=== PATIENT | female | born 1955 | race Caucasian/White ===

== ENCOUNTER 2022-07-29 09:40 | Emergency (ER) | payer BC, SELFPAY ==
[2022-07-29 09:45] VITALS: BP 140/76; PULSE 103; RESP 24; TEMP 37.6; O2SAT 89
--- NOTE | 2022-07-29 09:50 | ED.URI ---
HPI - URI/Sore Throat General Chief Complaint: Upper Respiratory Infection Stated Complaint: Sinus/SOB Time Seen by Provider: 07/29/22 09:50 Source: patient and RN notes reviewed Mode of arrival: ambulatory Limitations: no limitations History of Present Illness HPI Narrative: 67-year-old female presents with concern for cough, shortness of breath. Patient reports she has had allergy symptoms for the last 2 weeks that started to improve. Reports last night she started having worsening symptoms, cough and has shortness of breath. She denies any history of asthma or other breathing problems. She reports her symptoms are worse with exertion. She denies any use of albuterol at home. She reports low-grade temperature. She denies body aches, chills, sweats. Denies abdominal pain, vomiting, diarrhea. She reports several years ago she had a similar episode of shortness of breath when she was sick. MD elicited complaint: cough Related Data Home Medications Medication Instructions Recorded Confirmed acetaminophen 500 mg tablet (Pain 1,000 mg PO DAILY PRN Pain 08/25/21 07/29/22 Reliever (acetaminophen)) calcium carbonate 300 mg (750 mg) 600 mg PO DAILY PRN Allergic 08/25/21 07/29/22 chewable tablet (Tums) Symptoms loratadine 5 mg-pseudoephedrine ER 1 tablet PO Q12H PRN Congestion 08/25/21 07/29/22 120 mg tablet,extended release,12hr (Claritin-D 12 Hour) Allergies Allergy/AdvReac Type Severity Reaction Status Date / Time codeine Allergy Unknown Nausea and Verified 08/25/21 12:48 Vomiting Review of Systems Review of Systems: CONSTITUTIONAL: Denies malaise, chills, sweats. Reports low-grade fever. EYES: Denies visual changes, redness, or discharge. ENT: Reports rhinorrhea, congestion. Denies sinus pain, otalgia and sore throat. CARDIOVASCULAR: Denies chest pain, palpitations, or edema. RESPIRATORY: Reports cough, wheezing, dyspnea. GASTROINTESTINAL: Denies abdominal pain, nausea, vomiting, diarrhea SKIN: Denies rash or itching. MUSCULOSKELETAL: Denies myalgia. NEUROLOGIC: Denies headache. All systems reviewed & are unremarkable except as noted in HPI and below PMFSH Surgical History Surgical History (Updated 08/25/21 @ 12:54 by Leigh Davies MA) Hx of section x 2 Hx of hysterectomy Family History Family History (Updated 08/25/21 @ 12:55 by Leigh Davies MA) Mother Uterine cancer Father Throat cancer Social History Social History (Updated 08/25/21 @ 12:56 by Leigh Davies MA) Smoking packs per day: 0.5 Smoking cigarettes per day: 10.0 Years smoked: 20 Smoking pack-years: 10.00 Smoking status: Current every day smoker Tobacco type: cigarettes Second hand tobacco smoke exposure: No Alcohol intake: current Drinks per week: 7 Alcohol use details: Wine Substance use: never Substance use type: does not use Living arrangements: with family Occupation/Education: retired Gender identity (if verbalized by the patient): Female Sexual Orientation (if Verbalized by the Patient): Straight or Heterosexual Spiritual care concerns: No Agree to blood products: Yes Comments At time of signature, agree with nursing past medical, surgical, social and family history. There is no relevant family history pertinent to the presenting complaint Exam Narrative: GENERAL: Well-appearing, well-nourished, and in no acute distress. HEAD: Normocephalic EYES: PERRLA, conjunctivae clear ENT: Nares clear, turbinates edematous and erythematous, clear discharge. Mucous membranes moist. TM pearly alvarez with dull light reflex bilaterally; no tragal tenderness. Oropharynx not erythematous without lesions. Tonsils not enlarged and without exudate, no drooling, no hoarseness, no trismus, uvula midline. NECK: Supple. No lymphadenopathy CHEST: Aeration poor, inspiratory and expiratory wheeze, conversational dyspnea. No rhonchi, rales, or stridor. HEART: Regular rate
[2022-07-29] MEDS: IPRATROPIUM BR 0.02% INH SOLN 0.5 MG/2.5 ML VIAL INHALATION ×2 (09:53→10:30)
[2022-07-29] MEDS: ALBUTEROL SULFATE NEB 2.5 MG/3 ML INH INHALATION ×2 (09:53→10:31)
[2022-07-29 09:55] VITALS: PULSE 102; RESP 26; O2SAT 91
[2022-07-29] MEDS: methylPREDNISolone SOD SUCC 125 MG VIAL IM (09:59)
[2022-07-29 10:12] VITALS: PULSE 106; RESP 24; O2SAT 94
[2022-07-29 10:32] VITALS: PULSE 95; RESP 24; O2SAT 93
[2022-07-29 10:57] VITALS: PULSE 103; RESP 24; O2SAT 94
== END 2022-07-29 11:21 | disposition home or self-care (01) ==
PROVIDERS: Emergency Provider Nurse Practitioner; PCP Family Medicine Adolescent Medicine
DX: R06.2 Wheezing (principal); R06.02 Shortness of breath; Z20.822 Contact with and (suspected) exposure to COVID-19
CPT/HCPCS: 87426; 87804; 94640; 96372; 99213; C9803; G0463; J2930

== ENCOUNTER 2023-07-01 13:05 | Outpatient (CLI) | payer BC, SELFPAY ==
--- NOTE | ~2023-07-01 | XR_ITS ---
EXAM: XR hip RT min 2V DATE: 07/01/2023 13:14 HISTORY: Pain right hip, acute. Concern for AVN no injury . COMPARISON: None available. FINDINGS: Decreased mineralization. No fracture or dislocation. No lytic or blastic lesion. Lumbar d egenerative disc disease. Mild degenerative change in the pubic symphysis and right hip. No erosion o r periosteal change. Soft tissues within normal limits. IMPRESSION: Osteopenia. Mild right hip osteoarthritis. Mild osteitis pubis. Reviewed, dictated and finalized at location [facility].
== END 2023-07-01 13:06 ==
PROVIDERS: PCP Family Medicine Adolescent Medicine; Visit Provider Family Medicine Adolescent Medicine
DX: M85.851 Other specified disorders of bone density and structure, right thigh (principal); M16.11 Unilateral primary osteoarthritis, right hip
CPT/HCPCS: 73502

== ENCOUNTER → 2024-02-02 10:05 | Outpatient (CLI) | payer BC, SELFPAY ==
--- NOTE | ~2024-02-02 | XR_ITS ---
Clinical Indication: Shortness of breath PA and lateral views of the chest: Comparison: 10/21/2016 Findings: The lungs are clear, without evidence of focal consolidation or pleural effusion. Cardiome diastinal silhouette is within normal limits. Bones and soft tissues are unremarkable. Impression: Normal chest. Reviewed, dictated and finalized at [facility]. ICAL APPLICATOR Impression: Normal chest.
== END ==
PROVIDERS: PCP Family Medicine; Visit Provider Family Medicine
DX: R06.02 Shortness of breath (principal)
CPT/HCPCS: 71046

== ENCOUNTER 2024-02-10 14:20 | Outpatient (CLI) | payer BC, SELFPAY ==
--- NOTE | 2024-02-13 10:10 | WPDPFTINT ---
PFT Procedure Performed PFT Procedure Performed Spirometry with Pre/Post Bronchodilator Plethysmography (Lung Vol) Diffusing Cap (DLCO) Flow Vol Loop PFT Interpretation This is a pulmonary function test with pre and post-bronchodilator spirometry, plethysmography and diffusing capacity. The test was performed and results interpreted in accordance with the 2019 and 2005 ATS/ERS Task Force guidelines respectively using the Global Lung Function Initiative-2012 reference equations. Patient demonstrated good effort and cooperation. Reproducibility criteria were met. The quality of the pre bronchodilator spirometry maneuver was Grade A and post bronchodilator spirometry maneuver was Grade A. Findings: Spirometry: There is decreased maximal expiratory airflow at low lung volumes with concave expiratory flow tracing. The contour the inspiratory flow tracing is normal. The pre bronchodilator FVC is 2.18 L, 83% predicted. The pre bronchodilator FEV1 is 1.42 L, 69% predicted. The FEV1: FVC ratio 65%. The post bronchodilator FVC is 2.28 L, representing a 4% increase. The post bronchodilator FEV1 is 1.60 L, representing 180 mL increase which corresponds to a 13% increase. The post bronchodilator FEV1: FVC ratio is 70%. Plethysmography: The total lung capacity is 4.19 L, 89% predicted. The functional residual capacity is 2.00, 75% predicted. The residual volume is 1.87 L, 90% predicted. Diffusing capacity: The diffusing capacity unadjusted for hemoglobin and carboxyhemoglobin is 14.8, 75% predicted. The diffusing capacity adjusted for alveolar volume is 3.81, 87% predicted. Impression: There is a moderate obstructive abnormality. There is no significant improvement after inhaling a single dose of albuterol As the absolute increase in FEV1 is less than 200 mL. the lung volumes are normal. The diffusing capacity is normal. There are no prior studies for comparison
== END 2024-02-10 14:21 | disposition home or self-care (01) ==
LOC: ANHPFT 14:21
PROVIDERS: PCP Family Medicine; Visit Provider Family Medicine
DX: R94.2 Abnormal results of pulmonary function studies (principal); R06.00 Dyspnea, unspecified; R06.02 Shortness of breath; R06.2 Wheezing
CPT/HCPCS: 94060; 94726; 94729

== ENCOUNTER 2024-12-28 13:53 | Outpatient (CLI) | payer MEDICARE, SELFPAY ==
--- NOTE | ~2024-12-28 | MM_ITS ---
EXAMINATION: MM screening valentín BI w suresh HISTORY: Screening TECHNIQUE: Craniocaudal and mediolateral oblique 3-D tomosynthesis images were obtained and synthetic 2-D images were generated. CAD analysis was submitted and interpreted. COMPARISON: No prior mammogram is available for comparison at this institution. BREAST PARENCHYMAL COMPOSITION: Dense: The breasts are heterogeneously dense, which may obscure small masses FINDINGS: There are bilateral breast asymmetries centered in the upper outer quadrant of both breasts with possible architectural distortion. IMPRESSION: 1. Bilateral breast asymmetries with possible architectural distortion centered in the upper outer quadrant of both breasts. 2. Additional spot compression and mediolateral views with possible follow-up breast ultrasound recommended. BI-RADS Category 0: Incomplete: Needs additional imaging evaluation. Reviewed, dictated and finalized at location B. IMPRESSION: 1. Bilateral breast asymmetries with possible architectural distortion centered in the upper outer quadrant of both breasts. 2. Additional spot compression and mediolateral views with possible follow-up b reast ultrasound recommended. BI-RADS Category 0: Incomplete: Needs additional imaging evaluation.
--- OUTSIDE RECORDS SUMMARY | 2024-12-28 13:55 | XMS_ITS | Clinical Summary ---
Author Organization [employer] [facility] Address [address] 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
== END 2024-12-28 13:54 | disposition home or self-care (01) ==
PROVIDERS: PCP Family Medicine Adolescent Medicine; Visit Provider Family Medicine Adolescent Medicine
DX: Z12.31 Encounter for screening mammogram for malignant neoplasm of breast (principal); R92.8 Other abnormal and inconclusive findings on diagnostic imaging of breast
CPT/HCPCS: 77063; 77067

== ENCOUNTER 2025-01-09 08:19 | Outpatient (CLI) | payer MEDICARE, SELFPAY ==
--- OUTSIDE RECORDS SUMMARY | 2025-01-09 08:37 | XMS_ITS | Clinical Summary ---
Author Organization [id number] [facility] Address [address] 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
[2025-01-09 08:51] LABS: Hematocrit 39.3 % (37.0-47.0); Hemoglobin 13.1 g/dL (12.0-15.0); Immature Granulocyte Percent A 0.8 % (0-0.5); Immature Platelet Fraction Pct 2.4 % (0.9-11.2); Lymphocytes Absolute Auto 1.50 K/mm3 (0.9-3.2); Mean Corpuscular HGB Conc 33.3 g/dl (32-36); Mean Corpuscular Hemoglobin 30.8 pg (26-34); Mean Corpuscular Volume 92.3 fl (80-100); Nucleated Red Blood Cells Absolute Auto 0.000 K/mm3 (0.0-0.012); Nucleated Red Blood Cells Perc 0.0 % (0.0-0.2); Platelet Count Result 151 k/mm3 (150-375); Red Blood Count 4.26 M/mm3 (4.2-5.4); White Blood Count 6.3 K/mm3 (4.5-10.0)
[2025-01-09 09:17] LABS: Estimated Glomerular Filt Rate 26
[2025-01-09 09:57] LABS: Alanine Aminotransferase 34 U/L (6-35); Albumin Level 4.1 g/dL (3.5-5.1); Alkaline Phosphatase 133 U/L (38-126); Anion Gap 17 mmol/L (4-12); Aspartate Amino Transferase 59 U/L (14-36); Bilirubin,Total 1.1 mg/dL (0.2-1.3); Blood Urea Nitrogen 23 mg/dL (7-17); Calcium 10.5 mg/dL (8.4-10.2); Carbon Dioxide 24 mmol/L (22-30); Chloride 98 mmol/L (98-107); Estimated Glomerular Filt Rate 30; Glucose 117 mg/dL (65-110); Potassium 3.2 mmol/L (3.4-5.0); Sodium 139 mmol/L (137-145); Total Protein 8.0 g/dL (6.3-8.2)
[2025-01-09 10:32] LABS: Thyroid Stimulating Hormone 7.150 uIU/mL (0.465-4.680)
== END 2025-01-09 08:20 | disposition home or self-care (01) ==
PROVIDERS: PCP Family Medicine; Visit Provider Family Medicine
DX: E03.9 Hypothyroidism, unspecified (principal); R11.2 Nausea with vomiting, unspecified; R68.89 Other general symptoms and signs; R19.7 Diarrhea, unspecified; R13.10 Dysphagia, unspecified; F17.201 Nicotine dependence, unspecified, in remission
CPT/HCPCS: 36415; 80053; 84443; 85025; 85055

== ENCOUNTER 2025-01-09 09:30 | Inpatient (IN) | payer MEDICARE, SELFPAY ==
[2025-01-09] VITALS (10 sets, daily range): BP systolic 100–136; BP diastolic 51–76; PULSE 72–84; RESP 12–20; TEMP 36.8–36.9; O2SAT 95–99; BMI 42.7
--- NOTE | ~2025-01-09 | XR_ITS ---
EXAMINATION: XR retrograde pyelo w/stent BI DATE: 01/10/2025 15:26 INDICATION: Bilateral ureteroscopy TECHNIQUE: 247 fluoroscopic images of the abdomen and pelvis were obtained during procedure performed by Dr. Regalado. Radiologist was not present for the imaging or procedure. The amount of fluoroscopy time used during this procedure was 4.0 minutes. Total DAP was 8.14 mGym^2. COMPARISON: CT dated 01/09/2025 FINDINGS: Laboratory Equipment Installer images demonstrate a large rim calcified gallstone in the right upper quadrant. Subsequent images demonstrate cannulation of the right ureter with retrograde contrast injection demonstrating severe right hydroureteronephrosis extending to approximately 5 cm long stricture in the mid right ureter with smooth mucosal margins. Subsequent cannulation and retrograde contrast injection into the left ureter demonstrates moderate left hydronephrosis with an approximately 7 cm stricture of the mid left ureter also with smooth mucosal margins. No evident intraluminal filling defects or urothelial irregularities. Final images demonstrate placement of bilateral intraureteral stents with loops formed in the bladder and bilateral renal pelvises. IMPRESSION: 1. Severe right-sided and moderate left-sided hydronephrosis likely secondary to long strictures with smooth mucosal margins at the bilateral mid ureters. No evident urothelial irregularities to elevate suspicion for malignancy. 2. Placement of bilateral internal ureteral stents in expected position. See procedure note for further detail. Reviewed, dictated and finalized at location A. IMPRESSION: 1. Severe right-sided and moderate left-sided hydronephrosis likely secondary t o long strictures with smooth mucosal margins at the bilateral mid ureters. No evident urothelial irregularities to elevate suspicion for malignancy. 2. Placement of bilateral internal ureteral stents in expected position. See pr ocedure note for further detail.
--- NOTE | ~2025-01-09 | XR_ITS ---
EXAMINATION: XR chest 2V, 01/09/2025 12:30 CDT HISTORY: weakness COMPARISON: No comparisons available. Technique: 2 views obtained. Findings: The lungs are clear, no effusion. No pneumothorax. Heart is normal size. Mediastinal and hilar contours are within normal limits. Bony thorax no acute abnormality. Impression: No acute cardiopulmonary abnormality. Reviewed, dictated and finalized at location P. Impression: No acute cardiopulmonary abnormality.
--- NOTE | ~2025-01-09 | CT_ITS ---
EXAMINATION: CT chest abdomen pelvis wo con DATE: 01/09/2025 12:44 INDICATION: Unintentional weight loss. TECHNIQUE: Computed tomography (CT) of the chest, abdomen, and pelvis was performed without intravenous contrast. Automated exposure control and iterative reconstruction technique were employed. The dose-length product was 1409.98 mGy-cm. COMPARISON: None FINDINGS: CHEST CT: Mild linear discoid atelectasis/scarring at the posterior inferior aspect of the lingula and right middle lobe and at the junction of the superior and anteromedial basilar segments of the right lower lobe. A couple likely benign intrafissural lymph nodes along the left major fissure more cephalad measuring 3 mm in the more caudal measuring 5 mm. No other suspicious pulmonary nodules, pneumonia, pulmonary edema or other pulmonary infiltrates. No pleural effusion. Heart size is normal. Atherosclerotic coronary artery calcifications. Small pericardial effusion. Thoracic aorta is normal in caliber. Mild mediastinal lymphadenopathy with a few mildly enlarged precarinal and right paratracheal lymph nodes measuring up to 12 mm in maximal short axis diameter. Moderate to severe thoracic spondylosis. There are multiple scattered sclerotic bone lesions in the thoracic spine raising suspicion for metastatic disease. Likely old healed fracture deformity lateral right ninth rib. Asymmetric increased soft tis singh densities at the left breast relative to the right. ABDOMEN/PELVIS CT: Large rim calcified gallstone at the neck of the otherwise normal-appearing nondistended gallbladder. Diffuse hepatic steatosis. Spleen, pancreas and bilateral adrenal glands are normal. Mild likely age-related bilateral renal cortical atrophy. There is severe right hydroureteronephrosis extending to an abrupt transition point at the mid right ureter at the level of L5-S1. Mild left hydronephrosis with gradual tapering of the normal caliber proximal left ureter. No evident obstructing stones identified. Moderate diverticulosis with descending and sigmoid colon predominance and without adjacent inflammatory stranding to suggest diverticular colitis. Small bowel and appendix are normal. There is some wall thickening along the dome of the bladder which could be due to incomplete distention or differential includes malignancy or cystitis either acute or chronic. The uterus is not identified and has likely been surgically resected. Bilateral adnexa are unremarkable. There is diffuse mild mesenteric e malorie and small amount of ascites deep pelvis. There are multiple mildly prominent but still normal-sized upper abdominal lymph nodes which are likely reactive. No pathologically enlarged abdominal or pelvic lymphadenopathy. There are multiple scattered sclerotic lesions in the lumbar spine and pelvis. IMPRESSION: 1. Severe right hydroureteronephrosis extending to a transition point in the mid right ureter without evident obstructing stone which raises some concern for urothelial carcinoma. Wall thickening along the dome of the fluid distended bladder more likely due to partially decompressed state although differential would also include urothelial carcinoma or sequela of acute or chronic cystitis. Correlate with urinalysis and consider CT urogram for further evaluation. 2. Mild right hydronephrosis with gradual tapering of the proximal left ureter without discrete obstructing stone or mass. 3. Multiple scattered small sclerotic bone lesions throughout the spine and pelvis which raises suspicion for metastatic disease. Consider bone scan for further evaluation 4. Asymmetric left-sided predominant soft tissue densities at the breast. Correlate with mammography. 5. Nonspecific mild mesenteric edema in the abdomen and pelvis and small amount of scattered ascites. 6. Prominent diverticulosis. 7. Small sliding-type hiatal hernia. 8. Mild mediastinal and upper abdominal lymphadenopathy. 9. Small pericardial effusion. Reviewed, dictated and finalized at location A. IMPRESSION: 1. Severe right hydroureteronephrosis extending to a transition point in the mi d right ureter without evident obstructing stone which raises some concern for urothelial carcinoma. Wall thickening along the dome of the fluid distended steve dder more likely due to partially decompressed state although differential woul d also include urothelial carcinoma or sequela of acute or chronic cystitis. Co rrelate with urinalysis and consider CT urogram for further evaluation. 2. Mild right hydronephrosis with gradual tapering of the proximal left ureter without discrete obstructing stone or mass. 3. Multiple scattered small sclerotic bone lesions throughout the spine and pel vis which raises suspicion for metastatic disease. Consider bone scan for furth er evaluation 4. Asymmetric left-sided predominant soft tissue densities at the breast. Corre late with mammography. 5. Nonspecific mild mesenteric edema in the abdomen and pelvis and small amount of scattered ascites. 6. Prominent diverticulosis. 7. Small sliding-type hiatal hernia. 8. Mild mediastinal and upper abdominal lymphadenopathy. 9. Small pericardial effusion.
--- OUTSIDE RECORDS SUMMARY | 2025-01-09 10:40 | XMS_ITS | Clinical Summary ---
Author Organization [facility] Address [address] 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
--- NOTE | 2025-01-09 12:05 | ECG_ITS ---
Test Date: 2025-01-09 12:24:48 Measurements Intervals [place] Rate: 73 P: 34 OR: 174 QRS: 13 QRSD: 88 T: 2 QT: 397 QTc: 439 Interpretive Statements SINUS RHYTHM BASELINE ARTIFACT- I, II, III, AVR, AVL, AVF, V1, V4-V6 NORMAL ECG No previous ECG available for comparison Electronically Signed On 01-09-2025 14:16:47 CDT by Esteban Whitman D.O.
[2025-01-09 12:15] LABS: Hematocrit 37.7 % (37.0-47.0); Hemoglobin 12.7 g/dL (12.0-15.0); Immature Granulocyte Percent A 0.5 % (0-0.5); Lymphocytes Absolute Auto 1.45 K/mm3 (0.9-3.2); Mean Corpuscular HGB Conc 33.7 g/dl (32-36); Mean Corpuscular Hemoglobin 30.6 pg (26-34); Mean Corpuscular Volume 90.8 fl (80-100); Nucleated Red Blood Cells Absolute Auto 0.000 K/mm3 (0.0-0.012); Nucleated Red Blood Cells Perc 0.0 % (0.0-0.2); Platelet Count Result 127 k/mm3 (150-375); Red Blood Count 4.15 M/mm3 (4.2-5.4); White Blood Count 6.0 K/mm3 (4.5-10.0)
[2025-01-09] MEDS: LACTATED RINGERS 1,000 ML 999 ML IV CONT ×2 (12:17)
--- NOTE | 2025-01-09 12:23 | ED.RECABL ---
HPI - Recheck/Abnormal Lab/Rx General Chief Complaint: Recheck/Abnormal Lab/Rx Stated Complaint: SENT OVER FOR IVF FOR ELEVATED KIDNEY FUNCTION Time Seen by Provider: 01/09/25 12:01 History of Present Illness HPI narrative: 69-year-old female presenting from outpatient radiology suite for concern of kidney dysfunction. Patient was referred for CT scan of the chest abdomen pelvis with IV contrast for evaluation of suspected malignancy given patient's clinical history including unintentional large weight loss over the last few months with inability to tolerate oral intake, profound nausea vomiting and some watery diarrhea but no abdominal pain or chest pain/shortness of breath. She went to her primary care provider office today had a workup done with CT scan ordered. Went to her radiology suite where they point care tested her and she had a low GFR worse than her baseline so she was referred to the ED for evaluation. Patient denies any new complaints. States her symptoms have been going on for last few months. This is her 1st workup step after being evaluated by her PCP. Denies any abdominal pain, fever, chills. States she has early satiety and barely has any appetite anymore. States she has had unintentional 40 lb weight loss since October. Denies any fever chills or night sweats. No history of malignancy to her knowledge. States she has been having watery diarrhea but minimal output since she is not eating. Related Data Home Medications ?Medication ?Instructions ?Recorded ?Confirmed ?Last Taken ?Type diclofenac sodium 75 mg 75 mg PO DAILY 01/09/25 01/09/25 01/06/25 History tablet,delayed release Allergies Allergy/AdvReac Type Severity Reaction Status Date / Time codeine AdvReac Unknown Nausea and Verified 01/09/25 16:33 Vomiting Review of Systems Review of Systems: As reviewed above in HPI [facility] Past Medical History Medical History Body mass index (BMI) of 40.1 to 44.9 in adult COPD (chronic obstructive pulmonary disease) Hypothyroidism, unspecified Bilateral primary osteoarthritis of knee Surgical History Surgical History Hx of section x 2 Hx of hysterectomy Family History Family History Mother Uterine cancer Father Throat cancer Sibling No problems noted. Social History Social History Smoking packs per day: 1 Smoking cigarettes per day: 20.0 Years smoked: 20 Smoking pack-years: 20.00 Smoking status: Former smoker Second hand tobacco smoke exposure: No Alcohol intake: current Drinks per week: 7 Alcohol use details: Wine Substance use: never Substance use type: does not use Other substance usage details: Before october Do You Feel Safe in your Home?: Yes Lack of Transportation: No Lack of Food: Never True Current Housing: I Have Housing Concerned About Future Housing: No Difficulty Paying Gas/Electric Bills: No Difficulty Paying for Meds: No Currently Unemployed: No Education: High School Diploma/GED Difficulty w/ Childcare or Family Care: No Living arrangements: with family Occupation/Education: retired 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 Mucous membranes dry. NECK: Supple. CHEST: [Clear to auscultation. No respiratory distress.] HEART: [Regular rate and rhythm]. No murmur heard. [Normal peripheral pulses.] ABDOMEN: [Soft, nondistended], [nontender], [No rigidity or guarding] EXTREMITIES: Normal range of motion. [No edema.] SKIN: Warm, dry, no rash. NEURO: [No focal deficits]. Alert and oriented [x3.] PSYCH: [Normal mood and affect.] Course Vital Signs Vital signs: Vital Signs Temperature 36.8 C 01/09/25 09:40 Pulse Rate 84 01/09/25 09:40 Respiratory Rate 16 01/09/25 09:40 Blood Pressure 119/65 01/09/25 09:40 Pulse Oximetry 99 01/09/25 09:40 Temperature 36.8 C 01/09/25 09:40 Pulse Rate 79 01/09/25 15:12 Respiratory Rate 15 01/09/25 15:12 Blood Pressure 114/64 01/09/25 15:12 Pulse Oximetry 98 01/09/25 15:12 Oxygen Delivery Room Air 01/09/25 18:01 MDM - Recheck/Abnormal Lab/Rx MDM Narrative Medical decision making narrative: 69-year-old female presenting from outpatient radiology suite for concern of kidney dysfunction. Patient was referred for CT scan of the chest abdomen pelvis with IV contrast for evaluation of suspected malignancy given patient's clinical history including unintentional large weight loss over the last few months with inability to tolerate oral intake, profound nausea vomiting and some watery diarrhea but no abdominal pain or chest pain/shortness of breath. She went to her primary care provider office today had a workup done with CT scan ordered. Went to her radiology suite where they point care tested her and she had a low GFR worse than her baseline so she was referred to the ED for evaluation. Patient denies any new complaints. States her symptoms have been going on for last few months. This is her 1st workup step after being evaluated by her PCP. Denies any abdominal pain, fever, chills. States she has early satiety and barely has any appetite anymore. States she has had unintentional 40 lb weight loss since October. Denies any fever chills or night sweats. No history of malignancy to her knowledge. States she has been having watery diarrhea but minimal output since she is not eating. Patient is hemodynamically stable without any tachycardia, fever, hypoxemia or blood pressure concerns. Slightly dry mucous membranes concern for dehydration especially with the clinical history of lacking p.o. intake and weight loss. Given patient's PCPs concern for malignancy in the setting of renal failure she will receive fluid hydration and CT scan without contrast given her low GFR. She CT chest abdomen pelvis was ordered without contrast, EKG chest x-ray basic laboratory studies obtained as well as urinalysis. Placed on fur plucker. Workup shows no leukocytosis or anemia. Platelets on the low side. Chemistry panel shows hypokalemia at 2.8, given IV and oral potassium. Creatinine rebound at 1.66 with fluids. Glucose 99. LFTs largely unremarkable. Urinalysis shows no signs of infection. CT scan shows multiple anomalies and acute findings including severe right-sided hydroureteronephrosis likely secondary to your 3-0 carcinoma or obstructing mass. Bladder dome wall lesion also identified, mild left hydro noted. Mesenteric edema noted and small pericardial effusion noted. I discussed the case with the on-call Urology team who recommended making the patient NPO for bilateral stent placement and biopsy tomorrow morning in the operating room. Discussed the case with the patient and the family members at bedside informing them of patient's potential malignancy diagnosis and workup here with an inpatient status. Spoke to the hospitalist team who accepted the patient to a telemetry monitored bed given the acute hypokalemia and acute malignancy findings with plan in place with Urology. Consult placed to Hematology-Oncology as well. Family's questions were answered and discussions had with multiple consultants prior to admission. Medical Records Attestation: I reviewed the patient's medical records. Lab Data Attestation: I reviewed the patient's lab results. 01/09/25 11:55 01/09/25 11:55 Labs: Lab Results 01/09/25 01/09/25 Range/Units 11:55 14:32 WBC 6.0 (4.5-10.0) K/mm3 RBC 4.15 L (4.2-5.4) M/mm3 Hgb 12.7 (12.0-15.0) g/dL Hct 37.7 (37.0-47.0) % MCV 90.8 (80-100) fl MCH 30.6 (26-34) pg MCHC 33.7 (32-36) g/dl RDW 13.4 (11.5-14.5) % Plt Count 127 L (150-375) k/mm3 MPV 9.6 (7.4-10.4) fl Immature Gran % (Auto) 0.5 (0-0.5) % Neut % (Auto) 65.2 (45.5-73.1) % Lymph % (Auto) 24.4 (18.3-44.2) % Tyrrell % (Auto) 7.4 (2.6-8.5) % Eos % (Auto) 1.8 (0-4.4) % Baso % (Auto) 0.7 (0.2-1.2) % Lymph # (Auto) 1.45 (0.9-3.2) K/mm3 Tyrrell # (Auto) 0.4 (0.1-0.6) K/mm3 Eos # (Auto) 0.1 (0-0.3) K/mm3 Baso # (Auto) 0.0 (0.0-0.1) K/mm3 Abs Immat Gran (auto) 0.03 (0.00-0.031) K/mm3 Absolute Neuts (auto) 3.9 (1.3-6.7) K/mm3 Absolute Nucleated RBC 0.000 (0.0-0.012) K/mm3 Nucleated RBC % 0.0 (0.0-0.2) % Sodium 137 (137-145) mmol/L Potassium 2.8 L* (3.4-5.0) mmol/L Chloride 98 (98-107) mmol/L Carbon Dioxide 22 (22-30) mmol/L Anion Gap 17 H (4-12) mmol/L BUN 21 H (7-17) mg/dL Creatinine 1.66 H (0.7-1.0) mg/dL Estim Creat Clear Calc 30 ml/min Estimated GFR 31 L (59 - ) Glucose 99 (65-110) mg/dL Calcium 10.1 (8.4-10.2) mg/dL Magnesium 1.6 (1.6-2.3) mg/dL Total Bilirubin 1.0 (0.2-1.3) mg/dL AST 57 H (14-36) U/L ALT 32 (6-35) U/L Alkaline Phosphatase 136 H (38-126) U/L Total Protein 7.8 (6.3-8.2) g/dL Albumin 4.1 (3.5-5.1) g/dL Urine Color Dark yellow (Yellow) Urine Appearance Cloudy H (Clear) Urine pH 5.5 (5.0-9.0) Ur Specific [place] 1.019 (1.001-1.035) Urine Protein 1+ H (Negative) mg/dL Urine Glucose (UA) Negative (Negative) mg/dL Urine Ketones 1+ H (Negative) mg/dL Ur Blood (Man) Negative (Negative) Urine Nitrate Negative (Negative) Urine Bilirubin Negative (Negative) Urine Urobilinogen 1.0 (<2.0) mg/dL Leukocyte Esterase Rfl Negative (Negative) KRISTEN/UL Urine RBC 3-5 H (0-2) /hpf Urine WBC 0-5 (0-3) /hpf Ur Squamous Epith Cells Occasional (Few) /hpf Urine Bacteria None seen /hpf Urine Casts 11-20 Hyaline Casts Present (None) /lpf Imaging Data Attestation: I personally reviewed and interpreted this imaging study as follows: My impression: Impressions Chest/Abdomen/Pelvis CT 01/09/25 12:53 IMPRESSION: 1. Severe right hydroureteronephrosis extending to a transition point in the mid right ureter without evident obstructing stone which raises some concern for urothelial carcinoma. Wall thickening along the dome of the fluid distended bladder more likely due to partially decompressed state although differential would also include urothelial carcinoma or sequela of acute or chronic cystitis. Correlate with urinalysis and consider CT urogram for further evaluation. 2. Mild right hydronephrosis with gradual tapering of the proximal left ureter without discrete obstructing stone or mass. 3. Multiple scattered small sclerotic bone lesions throughout the spine and pelvis which raises suspicion for metastatic disease. Consider bone scan for further evaluation 4. Asymmetric left-sided predominant soft tissue densities at the breast. Correlate with mammography. 5. Nonspecific mild mesenteric edema in the abdomen and pelvis and small amount of scattered ascites. 6. Prominent diverticulosis. 7. Small sliding-type hiatal hernia. 8. Mild mediastinal and upper abdominal lymphadenopathy. 9. Small pericardial effusion. Chest X-Ray 01/09/25 12:59 Impression: No acute cardiopulmonary abnormality. Critical Care Time Critical Care Time Critical Care Time: Yes Total Critical Care Time: 75 Discharge Plan Discharge Clinical Impression: Hydroureteronephrosis, Obstruction, uropathy, Acute kidney injury, Acute hypokalemia Patient Disposition: Still a Patient Condition: Stable
[2025-01-09 12:25] LABS: Alanine Aminotransferase 32 U/L (6-35); Albumin Level 4.1 g/dL (3.5-5.1); Alkaline Phosphatase 136 U/L (38-126); Anion Gap 17 mmol/L (4-12); Aspartate Amino Transferase 57 U/L (14-36); Bilirubin,Total 1.0 mg/dL (0.2-1.3); Blood Urea Nitrogen 21 mg/dL (7-17); Calcium 10.1 mg/dL (8.4-10.2); Carbon Dioxide 22 mmol/L (22-30); Chloride 98 mmol/L (98-107); Estimated CRCL calculation 30 ml/min; Estimated Glomerular Filt Rate 31; Glucose 99 mg/dL (65-110); Potassium 2.8 mmol/L (3.4-5.0); Sodium 137 mmol/L (137-145); Total Protein 7.8 g/dL (6.3-8.2)
[2025-01-09 12:41] LABS: Magnesium 1.6 mg/dL (1.6-2.3)
[2025-01-09] MEDS: KCL 20 MEQ/SW 100 ML 100 ML 50 MEQ IVPB (12:52)
[2025-01-09] MEDS: POTASSIUM CHLORIDE 20 MEQ PACKET (FOR LIQUID) 40 MEQ PO (12:52)
--- NOTE | 2025-01-09 13:48 | PC.NURSE ---
Pt unable to void using bedside commode clean catch ua, discussed importance of test. Pt continues to decline straight cath, fluids infusing, given call light.
--- OUTSIDE RECORDS SUMMARY | 2025-01-09 13:55 | XMS_ITS | Clinical Summary ---
Author Organization [employer] [facility] Address [address] 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
[2025-01-09] MEDS: ONDANSETRON INJ 4 MG/2 ML VIAL IV PUSH ×2 (14:05→21:27)
--- NOTE | 2025-01-09 14:33 | PC.NURSE ---
Pt was in room and assisted self out of bed in order to reach the sink due to nausea. Pt had call light in reach, spouse at bedside, A&Ox4 and was neg for fall risk when screened. Pt states she was trying to reach the sink when she fell on her butt. Denies hitting head, denies LOC, denies any injuries. Pt was able to get herself off the floor and was assisted back to stretcher. Fall risk placed on bracelet and incident report completed. Dr Driscoll ordered 4mg Zofran IVP and this was administered. Per EDP at bedside following exam, no imaging required.
[2025-01-09 14:59] LABS: Add Urine Microscopic? YES; Appearance Urine Cloudy (Clear); Glucose Urine UA Negative (Negative); Leukocyte Esterase Ur Negative LEU/UL (Negative); Nitrate Urine Negative (Negative); Specific Grav Ur 1.019 (1.001-1.035)
[2025-01-09] MEDS: METOCLOPRAMIDE HCL INJ 10 MG/2 ML VIAL 5 MG IV PUSH (15:10)
--- NOTE | 2025-01-09 16:01 | P.CONUR_ITS ---
Assessment and Plan Assessment and plan (1) Hydronephrosis, right: Code(s): N13.30 - Unspecified hydronephrosis Status: Acute (2) Hydronephrosis, left: Code(s): N13.30 - Unspecified hydronephrosis Status: Acute (3) Bladder wall thickening: Code(s): N32.89 - Other specified disorders of bladder Status: Acute Plan -CT AP CO CON reveals severe right hydroureteronephrosis extending to an abrupt transition point at the mid right ureter at the level of L5-S1. Mild left hydronephrosis with gradual tapering of the normal caliber proximal left ureter. No evident obstructing stones identified. There is some wall thickening along the dome of the bladder which could be due to incomplete distention or differential includes malignancy or cystitis either acute or chronic. There is diffuse mild mesenteric edema and small amount of ascites deep pelvis. There are multiple mildly prominent but still normal-sized upper abdominal lymph nodes which are likely reactive. No pathologically enlarged abdominal or pelvic lymphadenopathy. There are multiple scattered sclerotic lesions in the lumbar spine and pelvis. - WBC is 6.0 - creatinine is 1.66 which is down from 1.90 this morning -place atkinson and obtain ua, culture, and cytology -NPO after midnight. - discussed with patient and her CT image results and labs. we discussed the need for bilateral ureteral stents to allow the hydronephrosis to resolve while investigating the abnormal findings on imaging. We discussed risks of surgery including bleeding, infection, damage to surrounding structures, and . We discussed the stents are temporary and will come out after the need is no more. Patient and are agreeable to move forward with the surgery tomorrow. - Patient will have bilateral ureteral stents, bilateral retrograde pyelogram, and possible bladder biopsy with Dr. Regalado tomorrow. I have already contacted OR and she has been placed on the schedule. - Oncology has been consulted as well. Urology Consult Note HPI Date Seen: 01/09/25 Requesting Physician: Brandyn Todd MD Primary Care Provider: Ana Rosa Jones DO Consult Narrative Narrative: Marivel Johnson is a 69 year old female presenting from outpatient radiology suite for concern of kidney dysfunction. Patient was referred for CT scan of the chest abdomen pelvis with IV contrast for evaluation of suspected malignancy given patient's clinical history including unintentional large weight loss over the last few months with inability to tolerate oral intake, profound nausea vomiting and some watery diarrhea but no abdominal pain or chest pain/shortness of breath. She went to her primary care provider office today had a workup done with CT scan ordered. Went to her radiology suite where they point care tested her and she had a low GFR worse than her baseline so she was referred to the ED for evaluation. Patient denies any new complaints. States her symptoms have been going on for last few months. This is her 1st workup step after being evaluated by her PCP. Denies any abdominal pain, fever, chills. States she has early satiety and barely has any appetite anymore. States she has had unintentional 40 lb weight loss since October. Denies any fever chills or night sweats. No history of malignancy to her knowledge. States she has been having watery diarrhea but minimal output since she is not eating. c/o tailbone pain. Review of Systems 2 Review of Systems: All systems reviewed & are unremarkable except as noted in HPI and below PMFSH Past Medical History Medical History Body mass index (BMI) of 40.1 to 44.9 in adult COPD (chronic obstructive pulmonary disease) Hypothyroidism, unspecified Bilateral primary osteoarthritis of knee Surgical History Surgical History Hx of section x 2 Hx of hysterectomy Family History Family History Mother Uterine cancer Father Throat cancer Sibling No problems noted. Social History Social History Smoking packs per day: 0.5 Smoking cigarettes per day: 10.0 Years smoked: 20 Smoking pack-years: 10.00 Smoking status: Former smoker Tobacco type: cigarettes Second hand tobacco smoke exposure: No Smoking end date: 03/28/23 Alcohol intake: current Drinks per week: 7 Alcohol use details: Wine Substance use: never Substance use type: does not use Do You Feel Safe in your Home?: Yes Lack of Transportation: No Lack of Food: Never True Current Housing: I Have Housing Concerned About Future Housing: No Difficulty Paying Gas/Electric Bills: No Difficulty Paying for Meds: No Currently Unemployed: No Education: High School Diploma/GED Difficulty w/ Childcare or Family Care: No Living arrangements: with family Occupation/Education: retired 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 Gender identity (if verbalized by the patient): Female Sexual Orientation (if Verbalized by the Patient): Straight or Heterosexual Spiritual care concerns: No Agree to blood products: Yes Meds Home Medications and Allergies Home Medications ?Medication ?Instructions ?Recorded ?Confirmed ?Type calcium carbonate (Tums) 600 mg PO DAILY PRN Allergic 08/25/21 01/09/25 History Symptoms diclofenac sodium 75 mg 75 mg PO BID #180 tabs 11/1401/09/25 Rx tablet,delayed release albuterol sulfate 90 mcg/actuation 2 inh inhalation Q4 H PRN shortness 08/15/23 01/09/25 Rx aerosol inhaler of breath or wheezing #8.5 g christiano budesonide-formoterol HFA 160 2 puff inhalation BID #1 0.2 grams 02/14/24 01/09/25 Rx mcg-4.5 mcg/actuation aerosol inhaler (Symbicort) levothyroxine 100 mcg tablet 100 mcg PO DAILY #90 tabs 08/07/24 01/09/25 Rx pantoprazole 40 mg tablet,delayed 40 mg PO QAM 6 weeks #42 tabs 12/06/24 01/09/25 Rx release ondansetron 4 mg disintegrating 4 mg PO Q6H PRN nausea and 01/09/25 01/09/25 Rx tablet vomiting #30 tabs Allergies Allergy/AdvReac Type Severity Reaction Status Date / Time codeine AdvReac Unknown Nausea and Verified 01/09/25 12:31 Vomiting Vital Signs Vital Signs - 24 hr 01/09/25 09:40 01/09/25 11:14 01/09/25 11:23 Temperature 98.2 F Pulse Rate 84 77 Respiratory Rate 16 14 16 Blood Pressure 119/65 124/65 Pulse Oximetry 99 98 01/09/25 12:16 01/09/25 12:56 01/09/25 13:29 Temperature Pulse Rate 78 77 82 Respiratory Rate 20 19 19 Blood Pressure 136/76 131/60 126/70 Pulse Oximetry 96 98 98 01/09/25 14:11 01/09/25 15:12 Temperature Pulse Rate 72 79 Respiratory Rate 12 15 Blood Pressure 126/70 114/64 Pulse Oximetry 96 98 Exam 2 Const: General: no acute distress Eyes: General: appearance normal, both eyes and all related structures Resp: Effort & Inspection: normal respiratory effort Urinary Catheter: Urinary Catheter: patent and draining and urine clear (very small amount of urine in bag) Skin: General skin exam: normal color Neuro: Speech: normal speech Psych: Speech and movement: Normal speech and movement present Results Labs 01/09/25 11:55 01/09/25 11:55 Labs: Short CBC 01/09/25 Range/Units 11:55 WBC 6.0 (4.5-10.0) K/mm3 Hgb 12.7 (12.0-15.0) g/dL Hct 37.7 (37.0-47.0) % Plt Count 127 L (150-375) k/mm3 BMP 01/09/25 11:55 Sodium 137 Potassium 2.8 L* Chloride 98 Carbon Dioxide 22 BUN 21 H Creatinine 1.66 H Glucose 99 Calcium 10.1 Liver Function 01/09/25 Range/Units 11:55 Total Bilirubin 1.0 (0.2-1.3) mg/dL AST 57 H (14-36) U/L ALT 32 (6-35) U/L Alkaline Phosphatase 136 H (38-126) U/L Albumin 4.1 (3.5-5.1) g/dL Urine 01/09/25 Range/Units 14:32 Urine Color Dark yellow (Yellow) Urine Appearance Cloudy H (Clear) Urine pH 5.5 (5.0-9.0) Ur Specific [place] 1.019 (1.001-1.035) Urine Protein 1+ H (Negative) mg/dL Urine Glucose (UA) Negative (Negative) mg/dL
--- NOTE | 2025-01-09 16:18 | PM.IMHP ---
H&P: HPI History of Present Illness Date/Time: 01/09/25 16:18 Chief Complaint: Abnormal lab Narrative: 69-year-old female with a past medical history of COPD, hypothyroidism, arthritis presents to the ER 01/09/2025 from her PCP office with complaints of low GFR in the setting of a 3 month history of nausea, vomiting, diarrhea. She was supposed to get CT chest abdomen pelvis with contrast contrast today due to concerns for malignancy with her presenting symptoms. She was unable to complete the CT with contrast due to her gfr being 26. She has lost about 36 lbs in the last 3 months, 18 of those in the last month alone. Patient has not been able to consistently keep food and medication down and has been unable to take her thyroid medication for the past 5 days. Patient had abnormal mammogram on 12/28/2024 and has follow-up imaging scheduled for this on 01/18/2025. Denies dyspnea, chest pain, fevers, chills. Further complains of decreased appetite. Patient describes her diarrhea as watery but minimal due to her poor p.o. intake. On arrival to the ED, patient was hemodynamically stable, with no fever and not tachypneic. Labs show no leukocytosis or anemia. Platelets 127. Chem panel with hypokalemia at 2.8. Creatinine 1.9 and GFR 26. AST and ALT slightly elevated. TSH 7.1 UA with no signs of infection CXR with no acute cardiopulmonary abnormality. CT abdomen pelvis read as follows: 1. Severe right hydroureteronephrosis extending to a transition point in the mid right ureter without evident obstructing stone which raises some concern for urothelial carcinoma. Wall thickening along the dome of the fluid distended bladder more likely due to partially decompressed state although differential would also include urothelial carcinoma or sequela of acute or chronic cystitis. Correlate with urinalysis and consider CT urogram for further evaluation. 2. Mild right hydronephrosis with gradual tapering of the proximal left ureter without discrete obstructing stone or mass. 3. Multiple scattered small sclerotic bone lesions throughout the spine and pelvis which raises suspicion for metastatic disease. Consider bone scan for further evaluation 4. Asymmetric left-sided predominant soft tissue densities at the breast. Correlate with mammography. 5. Nonspecific mild mesenteric edema in the abdomen and pelvis and small amount of scattered ascites. 6. Prominent diverticulosis. 7. Small sliding-type hiatal hernia. 8. Mild mediastinal and upper abdominal lymphadenopathy. 9. Small pericardial effusion. Review of Systems Review of Systems: All systems reviewed & are unremarkable except as noted in HPI and below PMFSH Past Medical History Medical History Body mass index (BMI) of 40.1 to 44.9 in adult COPD (chronic obstructive pulmonary disease) Hypothyroidism, unspecified Bilateral primary osteoarthritis of knee Surgical History Surgical History Hx of section x 2 Hx of hysterectomy Family History Family History Mother Uterine cancer Father Throat cancer Sibling No problems noted. Social History Social History Smoking packs per day: 1 Smoking cigarettes per day: 20.0 Years smoked: 20 Smoking pack-years: 20.00 Smoking status: Former smoker Second hand tobacco smoke exposure: No Alcohol intake: current Drinks per week: 7 Alcohol use details: Wine Substance use: never Substance use type: does not use Other substance usage details: Before october Do You Feel Safe in your Home?: Yes Lack of Transportation: No Lack of Food: Never True Current Housing: I Have Housing Concerned About Future Housing: No Difficulty Paying Gas/Electric Bills: No Difficulty Paying for Meds: No Currently Unemployed: No Education: High School Diploma/GED Difficulty w/ Childcare or Family Care: No Living arrangements: with family Occupation/Education: retired 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 Gender identity (if verbalized by the patient): Female Sexual Orientation (if Verbalized by the Patient): Straight or Heterosexual Spiritual care concerns: No Agree to blood products: Yes Meds Home Medications and Allergies Home Medications ?Medication ?Instructions ?Recorded ?Confirmed ?Type albuterol sulfate 90 mcg/actuation 2 inh inhalation Q4H PRN shortness 08/15/23 01/09/25 Rx aerosol inhaler of breath or wheezing #8.5 grams budesonide-formoterol HFA 160 2 puff inhalation BID #10.2 grams 02/14/24 01/09/25 Rx mcg-4.5 mcg/actuation aerosol inhaler (Symbicort) levothyroxine 100 mcg tablet 100 mcg PO DAILY #90 tabs 08/07/24 01/09/25 Rx pantoprazole 40 mg tablet,delayed 40 mg PO QAM 6 weeks #42 tabs 12/06/24 01/09/25 Rx release diclofenac sodium 75 mg 75 mg PO DAILY 01/09/25 01/09/25 History tablet,delayed release ondansetron 4 mg disintegrating 4 mg PO Q6H PRN nausea and 01/09/25 01/09/25 Rx tablet vomiting #30 tabs Allergies Allergy/AdvReac Type Severity Reaction Status Date / Time codeine AdvReac Unknown Nausea and Verified 01/09/25 16:33 Vomiting Vital Signs Vital Signs - 24 hr 01/09/25 09:40 01/09/25 11:14 01/09/25 11:23 Temperature 98.2 F Pulse Rate 84 77 Respiratory Rate 16 14 16 Blood Pressure 119/65 124/65 Pulse Oximetry 99 98 01/09/25 12:16 01/09/25 12:56 01/09/25 13:29 Temperature Pulse Rate 78 77 82 Respiratory Rate 20 19 19 Blood Pressure 136/76 131/60 126/70 Pulse Oximetry 96 98 98 01/09/25 14:11 01/09/25 15:12 Temperature Pulse Rate 72 79 Respiratory Rate 12 15 Blood Pressure 126/70 114/64 Pulse Oximetry 96 98 Exam Narrative: GENERAL: non-toxic appearing, in no acute distress. HEAD: Normocephalic, atraumatic. EYES: PERRLA. Conjunctivae clear. NOSE: Normal no drainage. THROAT: Pharynx clear, no exudate. NECK: Trachea midline. No adenopathy, no masses. RESPIRATORY: Airway patent, respirations nonlabored. CTA. CARDIOVASCULAR: Regular rate and rhythm BREASTS: Defer GASTROINTESTINAL: Abdomen is soft and nontender. No organomegaly. Bowel sounds normal in all quadrants. GENITOURINARY: Jacobo catheter recently placed. Minimal output noted in bag MUSCULOSKELETAL: Moves all extremities. No gross deformities. No calf tenderness. SKIN: Warm, dry, normal color. NEURO: A&O X4. Speech clear PSYCHIATRIC: Normal interaction H&P: Results Labs Labs: Short CBC 01/09/25 Range/Units 11:55 WBC 6.0 (4.5-10.0) K/mm3 Hgb 12.7 (12.0-15.0) g/dL Hct 37.7 (37.0-47.0) % Plt Count 127 L (150-375) k/mm3 BMP 01/09/25 11:55 Sodium 137 Potassium 2.8 L* Chloride 98 Carbon Dioxide 22 BUN 21 H Creatinine 1.66 H Glucose 99 Calcium 10.1 Liver Function 01/09/25 Range/Units 11:55 Total Bilirubin 1.0 (0.2-1.3) mg/dL AST 57 H (14-36) U/L ALT 32 (6-35) U/L Alkaline Phosphatase 136 H (38-126) U/L Albumin 4.1 (3.5-5.1) g/dL Urine 01/09/25 Range/Units 14:32 Urine Color Dark yellow (Yellow) Urine Appearance Cloudy H (Clear) Urine pH 5.5 (5.0-9.0) Ur Specific [place] 1.019 (1.001-1.035) Urine Protein 1+ H (Negative) mg/dL Urine Glucose (UA) Negative (Negative) mg/dL Assessment and Plan Assessment and plan (1) Bladder wall thickening: Code(s): N32.89 - Other specified disorders of bladder Status: Acute Assessment and Plan: Three-month history of unintended weight loss and nausea, vomiting, diarrhea. Concerns for malignancy with presenting symptoms. See CT abdomen pelvis results in HPI. -urology consult-> plan for bilateral ureteral stent placement and biopsy in OR on 01/10 -Jacobo catheter placed -oncology consulted (2) Nausea & vomiting: Qualifiers: Vomiting type: unspecified Qualified Code(s): R11.2 - Nausea with vomiting, unspecified Code(s): R11.2 - Nausea with vomiting, unspecified Status: Acute Assessment and Plan: Three month history of nausea and vomiting. Patient has upcoming appointment on 02/04 with Gastroenterology for her N/V/D. Family request GI consult while inpatient. Prominent diverticulosis and a small hiatal hernia noted on CT. No definitive etiology of ongoing GI symptoms, but likely likely related to new found carcinoma. -GI consult -symptom management with Zofran p.r.n. -patient will be NPO at midnight for OR. Can further investigate and trial p.o. intake after procedure (3) Acute kidney injury: Code(s): N17.9 - Acute kidney failure, unspecified Status: Acute Assessment and Plan: ROMARIO noted in PCP office. CT read severe right hydroureteronephrosis extending to a transition point in the mid right ureter without evident obstructing stone which raises some concern for urothelial carcinoma. Wall thickening along the dome of the fluid distended bladder more likely due to partially decompressed state although differential would also include urothelial carcinoma or sequela of acute or chronic cystitis. Correlate with urinalysis and consider CT urogram for further evaluation. Mild right hydronephrosis with gradual tapering of the proximal left ureter without discrete obstructing stone or mass -urology and oncology following -creatinine initially 1.9 in ED--> improved to 1.66 after 2 L LR bolus -continue to trend renal function (4) Hypokalemia due to excessive gastrointestinal loss of potassium: Code(s): E87.6 - Hypokalemia Status: Acute Assessment and Plan: Potassium 2.8 on arrival to ED. Likely from GI loss. -replaced with potassium chloride 20 mEq IV and 40 mEq p.o. -trend potassium and replace as needed -control nausea to minimize loss (5) Hypothyroidism, unspecified: Qualifiers: Hypothyroidism type: unspecified Qualified Code(s): E03.9 - Hypothyroidism, unspecified Code(s): E03.9 - Hypothyroidism, unspecified Status: Acute Assessment and Plan: Patient has been unable to take her levothyroxine for about 5 days due to her GI symptoms. TSH resulted 7.1 with labs ordered by PCP. -TSH reflex ordered -will start patient on IV levothyroxine at 50% home dose -resume home dose once tolerating p.o. Plan Diet: Regular-NPO at midnight GI prophylaxis: Pantoprazole DVT prophylaxis: SCDs lines/drains: PIV, Jacobo Fluids: 2 L LR Code status: Full Quality VTE Prophylaxis VTE prophylaxis: mechanical ordered Hospitalist [facility] Advance Care Plan I have confirmed that the patient's Advanced Care Plan is present, code status is documented, or surrogate decision maker is listed in patient medical record.: Yes Medication Reconciliation I have utilized all available resources to obtain, update and review the patients current medications (includes all prescriptions, OTC, herbals, cannabis, and nutritional supplements).: Yes
--- NOTE | 2025-01-09 16:25 | ADMGEN ---
This patient, Marivel Johnson, was admitted to Medical Room 344-01. Patient/family oriented to hospital policies and general routines including ID bracelet, bed and alarms, visiting hours, pain management, procedures, bathroom and other care routines, personal items, smoking policy, room service/diet, and visiting hours. Information on how to activate the Rapid Response Team has been discussed. Patient/Family are encouraged to report perceived risks to care and to ask questions if they do not understand what they are told or what they should do.
[2025-01-10] VITALS (15 sets, daily range): BP systolic 106–133; BP diastolic 52–75; PULSE 64–92; RESP 14–18; TEMP 36.2–36.9; O2SAT 92–100; BMI 42.7
[2025-01-10 05:09] LABS: Alanine Aminotransferase 28 U/L (6-35); Albumin Level 3.2 g/dL (3.5-5.1); Alkaline Phosphatase 118 U/L (38-126); Anion Gap 8 mmol/L (4-12); Aspartate Amino Transferase 48 U/L (14-36); Bilirubin,Total 0.7 mg/dL (0.2-1.3); Blood Urea Nitrogen 21 mg/dL (7-17); Calcium 8.9 mg/dL (8.4-10.2); Carbon Dioxide 22 mmol/L (22-30); Chloride 104 mmol/L (98-107); Estimated CRCL calculation 33 ml/min; Estimated Glomerular Filt Rate 34; Glucose 95 mg/dL (65-110); Potassium 3.3 mmol/L (3.4-5.0); Sodium 134 mmol/L (137-145); Total Protein 6.4 g/dL (6.3-8.2)
[2025-01-10 05:40] LABS: Thyroid Stimulating Hormone Reflex 8.400 uIU/mL (0.465-4.68)
--- NOTE | 2025-01-10 06:25 | WPDHPUPDATE1 ---
History and Physical Update Update Date/Time: 01/10/25 06:25 History and Physical has been reviewed, including an updated exam of the patient. There are NO changes in the patient's condition. Risks, benefits, and alternatives have been discussed and questions answered. Patient agrees to proceed with procedure.
[2025-01-10] MEDS: FLUTICASONE/SALMETEROL 115-21 MCG INHALER 1 PUFF 2 PUFF INHALATION ×2 (07:23→20:14)
[2025-01-10 08:05] LABS: Free T4 Free Thyroxine Reflex 1.45 ng/dL (0.78-2.19)
[2025-01-10] MEDS: LEVOTHYROXINE SODIUM INJ 100 MCG/5 ML VIAL 50 MCG IV PUSH (08:05)
[2025-01-10 09:24] LABS: Total Triiodothyronine (T3) 0.65 NG/ML (0.82-1.58)
--- NOTE | 2025-01-10 09:36 | PM.IMPN ---
Progress Note: A&P Assessment and Plan (1) Bladder wall thickening: Code(s): N32.89 - Other specified disorders of bladder Status: Acute Assessment and Plan: Three-month history of unintended weight loss and nausea, vomiting, diarrhea. Concerns for malignancy with presenting symptoms. See CT abdomen pelvis results in HPI. -urology consult-> plan for bilateral ureteral stent placement and biopsy in OR on 01/10 -Jacobo catheter placed -oncology consulted 01/10: Pending onc consult, stent placement and biopsy today around 1400. (2) Nausea & vomiting: Qualifiers: Vomiting type: unspecified Qualified Code(s): R11.2 - Nausea with vomiting, unspecified Code(s): R11.2 - Nausea with vomiting, unspecified Status: Acute Assessment and Plan: Three month history of nausea and vomiting. Patient has upcoming appointment on 02/04 with Gastroenterology for her N/V/D. Family request GI consult while inpatient. Prominent diverticulosis and a small hiatal hernia noted on CT. No definitive etiology of ongoing GI symptoms, but likely likely related to new found carcinoma. -GI consult -symptom management with Zofran p.r.n. -patient will be NPO at midnight for OR. Can further investigate and trial p.o. intake after procedure 01/10: Denies today, will evaluate after procedure. Zofran PRN. (3) Acute kidney injury: Code(s): N17.9 - Acute kidney failure, unspecified Status: Acute Assessment and Plan: ROMARIO noted in PCP office. CT read severe right hydroureteronephrosis extending to a transition point in the mid right ureter without evident obstructing stone which raises some concern for urothelial carcinoma. Wall thickening along the dome of the fluid distended bladder more likely due to partially decompressed state although differential would also include urothelial carcinoma or sequela of acute or chronic cystitis. Correlate with urinalysis and consider CT urogram for further evaluation. Mild right hydronephrosis with gradual tapering of the proximal left ureter without discrete obstructing stone or mass -urology and oncology following -creatinine initially 1.9 in ED--> improved to 1.66 after 2 L LR bolus -continue to trend renal function 01/10: Creatinine continues to decrease, now 1.50, will continue to follow (4) Hypokalemia due to excessive gastrointestinal loss of potassium: Code(s): E87.6 - Hypokalemia Status: Acute Assessment and Plan: Potassium 2.8 on arrival to ED. Likely from GI loss. -replaced with potassium chloride 20 mEq IV and 40 mEq p.o. -trend potassium and replace as needed -control nausea to minimize loss 01/10: -K continues to be low at 3.3, will replete via IV again today due to NPO status. Continue with AM labs. (5) Hypothyroidism, unspecified: Qualifiers: Hypothyroidism type: unspecified Qualified Code(s): E03.9 - Hypothyroidism, unspecified Code(s): E03.9 - Hypothyroidism, unspecified Status: Acute Assessment and Plan: Patient has been unable to take her levothyroxine for about 5 days due to her GI symptoms. TSH resulted 7.1 with labs ordered by PCP. -TSH reflex ordered -will start patient on IVP levothyroxine at 50% home dose -resume home dose once tolerating p.o. and after NPO status 01/10: -TSH 8.400, T3 0.65, T4 WDL -Continue with levothyroxine IVP until not NPO and can tolerate PO home dose Plan Diet: NPO GI prophylaxis: Pantoprazole DVT prophylaxis: SCDs lines/drains: PIV, Jacobo Fluids: N/A Code status: Full Subjective Date/time seen: 01/10/25 1200 Interval history: Pt resting in bed with and friend at the bedside upon my arrival. Pt with plan to have uro stent placement today at 1400. Pt reports N/V/D and significant weight loss since October which has been making it hard to take her medications,including levothyroxine. Pt does report that she was recently rx pantoprazole and she believes that is when the N/V/D first started. Denies N/V/D today. Review of Systems Review of Systems: All systems reviewed & are unremarkable except as noted in HPI and below Exam Narrative: GENERAL: non-toxic appearing, in no acute distress. Obese. HEAD: Normocephalic, atraumatic. EYES: PERRLA. Conjunctivae clear. NOSE: Normal no drainage. THROAT: Pharynx clear, no exudate. NECK: Trachea midline. No adenopathy, no masses. RESPIRATORY: Airway patent, respirations nonlabored. CTA. CARDIOVASCULAR: Regular rate and rhythm GASTROINTESTINAL: Abdomen is soft and nontender. No organomegaly. Bowel sounds normal in all quadrants. GENITOURINARY: Jacobo catheter recently placed. Moderate output noted in bag MUSCULOSKELETAL: Moves all extremities. No gross deformities. No calf tenderness. SKIN: Warm, dry, normal color. BREAST: L with inverted nipple NEURO: A&O X4. Speech clear PSYCHIATRIC: Normal interaction Objective Data Vital Signs Vital Signs: Vital Signs - 24 hr 01/09/25 09:40 01/09/25 11:14 01/09/25 11:23 Temperature 98.2 F Pulse Rate 84 77 Respiratory Rate 16 14 16 Blood Pressure 119/65 124/65 Pulse Oximetry 99 98 Oxygen Delivery 01/09/25 12:16 01/09/25 12:56 01/09/25 13:29 Temperature Pulse Rate 78 77 82 Respiratory Rate 20 19 19 Blood Pressure 136/76 131/60 126/70 Pulse Oximetry 96 98 98 Oxygen Delivery 01/09/25 14:11 01/09/25 15:12 01/09/25 18:01 Temperature Pulse Rate 72 79 Respiratory Rate 12 15 Blood Pressure 126/70 114/64 Pulse Oximetry 96 98 Oxygen Delivery Room Air 01/09/25 20:00 01/09/25 22:06 01/10/25 00:00 Temperature 98.4 F Pulse Rate 82 79 85 Respiratory Rate 16 Blood Pressure 100/51 L Pulse Oximetry 95 Oxygen Delivery 01/10/25 04:00 01/10/25 06:00 Temperature 98.2 F Pulse Rate 92 80 Respiratory Rate 18 Blood Pressure 106/64 Pulse Oximetry 96 Oxygen Delivery Intake/Output Intake/Output: Intake & Output 01/07/25 01/08/25 01/09/25 01/10/25 23:59 23:59 23:59 23:59 Intake Total 2220 Output Total 800 Balance 2220 -800 Meds/Results Medications: Active Medications Generic Name Dose Route Start Last Admin Trade Name Freq PRN Reason Stop Dose Admin Acetaminophen 650 mg 01/09/25 14:53 Acetaminophen 325 Mg Tablet PO Q4H PRN Mild Pain (1-3) or Fever Albuterol/Ipratropium 3 ml 01/09/25 19:41 Ipratropium 0.5 Mg/Albuterol Sulfate 2.5 Mg (Base) Ampul.Neb 3 Ml INHALATION Q6HRT PRN Shortness Of Breath Or Wheezing Levothyroxine Sodium 100 mcg 01/10/25 06:30 Levothyroxine Sodium 100 Mcg Tablet PO On Hold: 01/10/25 09:00 DAILY@0630 [facility] Comment: Unable to take p.o.. IV for now Levothyroxine Sodium 50 mcg 01/10/25 06:30 01/10/25 08:05 Levothyroxine Sodium Inj 100 Mcg/5 Ml Vial IV PUSH 50 mcg DAILY@0630 [facility] Administration Ondansetron HCl 4 mg 01/09/25 14:53 01/09/25 21:27 Ondansetron Inj 4 Mg/2 Ml Vial IV PUSH 4 mg Q4H PRN Administration Nausea Pantoprazole Sodium 40 mg 01/10/25 09:00 Pantoprazole 40 Mg Tablet PO QAM [facility] Fluticasone/Salmeterol 2 puff 01/09/25 20:00 01/10/25 07:23 Fluticasone/Salmeterol 115-21 Mcg Inhaler 1 Puff INHALATION 2 puff Q12HRT CINTIA Administration Radiology Results: ITS Impressions Chest/Abdomen/Pelvis CT 01/09/25 12:53 IMPRESSION: 1. Severe right hydroureteronephrosis extending to a transition point in the mid right ureter without evident obstructing stone which raises some concern for urothelial carcinoma. Wall thickening along the dome of the fluid distended bladder more likely due to partially decompressed state although differential would also include urothelial carcinoma or sequela of acute or chronic cystitis. Correlate with urinalysis and consider CT urogram for further evaluation. 2. Mild right hydronephrosis with gradual tapering of the proximal left ureter without discrete obstructing stone or mass. 3. Multiple scattered small sclerotic bone lesions throughout the spine and pelvis which raises suspicion for metastatic disease. Consider bone scan for further evaluation 4. Asymmetric left-sided predominant soft tissue densities at the breast. Correlate with mammography. 5. Nonspecific mild mesenteric edema in the abdomen and pelvis and small amount of scattered ascites. 6. Prominent diverticulosis. 7. Small sliding-type hiatal hernia. 8. Mild mediastinal and upper abdominal lymphadenopathy. 9. Small pericardial effusion. Chest X-Ray 01/09/25 12:59 Impression: No acute cardiopulmonary abnormality. Labs Labs: Laboratory Results - last 24 hr 01/09/25 01/09/25 01/10/25 11:55 14:32 04:42 WBC 6.0 RBC 4.15 L Hgb 12.7 Hct 37.7 MCV 90.8 MCH 30.6 MCHC 33.7 RDW 13.4 Plt Count 127 L MPV 9.6 Immature Gran % (Auto) 0.5 Neut % (Auto) 65.2 Lymph % (Auto) 24.4 [place] % (Auto) 7.4 Eos % (Auto) 1.8 Baso % (Auto) 0.7 Lymph # (Auto) 1.45 [place] # (Auto) 0.4 Eos # (Auto) 0.1 Baso # (Auto) 0.0 Abs Immat Gran (auto) 0.03 Absolute Neuts (auto) 3.9 Absolute Nucleated RBC 0.000 Nucleated RBC % 0.0 Sodium 137 134 L Potassium 2.8 L* 3.3 L Chloride 98 104 Carbon Dioxide 22 22 Anion Gap 17 H 8 BUN 21 H 21 H Creatinine 1.66 H 1.50 H Estim Creat Clear Calc 30 33 Estimated GFR 31 L 34 L Glucose 99 95 Calcium 10.1 8.9 Magnesium 1.6 Total Bilirubin 1.0 0.7 AST 57 H 48 H ALT 32 28 Alkaline Phosphatase 136 H 118 Total Protein 7.8 6.4 Albumin 4.1 3.2 L TSH (Reflex) 8.400 H Free T4 1.45 Total T3 0.65 L Urine Color Dark yellow Urine Appearance Cloudy H Urine pH 5.5 Ur Specific [place] 1.019 Urine Protein 1+ H Urine Glucose (UA) Negative Urine Ketones 1+ H Ur Blood (Man) Negative Urine Nitrate Negative Urine Bilirubin Negative Urine Urobilinogen 1.0 Leukocyte Esterase Rfl Negative Urine RBC 3-5 H Urine WBC 0-5 Ur Squamous Epith Cells Occasional Urine Bacteria None seen Urine Casts 11-20 Hyaline Casts Present Quality VTE Prophylaxis VTE prophylaxis: mechanical ordered
--- NOTE | 2025-01-10 10:20 | P.CONGI_ITS ---
Assessment and Plan Assessment and plan (1) Nausea & vomiting: Qualifiers: Vomiting type: unspecified Qualified Code(s): R11.2 - Nausea with vomiting, unspecified <Shaila D. Annie, [employer] ASSEMBLER - Last Filed: 01/10/25 15:37> Code(s): R11.2 - Nausea with vomiting, unspecified <Shaila D. Annie, [employer] ASSEMBLER - Last Filed: 01/10/25 15:37> Status: Acute <Shaila D. Annie, B[employer] II ASSEMBLER - Last Filed: 01/10/25 15:37> (2) Unintentional weight change: Code(s): R68.89 - Other general symptoms and signs <Shaila D. Annie, BIC[employer] II ASSEMBLER - Last Filed: 01/10/25 15:37> Status: Acute <Shaila D. Annie, B[employer] II ASSEMBLER - Last Filed: 01/10/25 15:37> (3) Diarrhea: Qualifiers: Diarrhea type: unspecified type Qualified Code(s): R19.7 - Diarrhea, unspecified <Shaila D. Annie, [employer] ASSEMBLER - Last Filed: 01/10/25 15:37> Code(s): R19.7 - Diarrhea, unspecified <Shaila D. Annie, BIC[employer] II ASSEMBLER - Last Filed: 01/10/25 15:37> Status: Acute <Shaila D. Annie, B[employer] ASSEMBLER - Last Filed: 01/10/25 15:37> Assessment and Plan: 1. Nausea/vomiting/diarrhea/weight loss/concerns for metastatic cancer: After reviewing recent outpatient office visit notes it appears that her weight has been declining since August of 2024 from 247-->229-->[address] abd/pelvis w/contrast 01/09/2025 revealed multiple findings concerning for possible metastatic malignancy including: Severe right hydroureteronephrosis extending to a transition point in the mid right ureter without evident obstructing stone which raises some concern for urothelial carcinoma. Wall thickening along the dome of the fluid distended bladder more likely due to partially decompressed state although differential would also include urothelial carcinoma or sequela of acute or chronic cystitis. Correlate with urinalysis and consider CT urogram for further evaluation. Multiple scattered small sclerotic bone lesions throughout the spine and pelvis which raises suspicion for metastatic disease. From from GI perspective CT showed prominent diverticulosis, small sliding-type hiatal hernia, nonspecific mild mesenteric edema in the abdomen and pelvis and small amount of scattered ascites and mild mediastinal and upper abdominal lymphadenopathy. Oncology and urology have already been consulted. Urology plan is for bilateral ureteral stent placement, bilateral retrograde pyelogram and possible bladder biopsy today. * symptoms likely related to newly found possible cancer, but this has not been confirmed with Bx * Continue PRN antiemetics * GI will follow up with patient following surgery at which time we should have more information available from urology and oncology Thank you very much for allowing me to share in the care of this very nice patient. This report may have been done utilizing a voice recognition system. Attempts have been made to correct errors. However, there may be uncorrected grammatical, spelling, and recognition errors present. <Shaila Valencia, [employer]SEM[employer]ER - Last Filed: 01/10/25 15:37> GI Consult Note Consult date/time: 01/10/25 10:20 <Shaila Valencia [employer]SEM[employer]ER - Last Filed: 01/10/25 15:37> Reason for consult: Nausea/vomiting/diarrhea <Shaila Valencia, B[employer] ASSEMBLER - Last Filed: 01/10/25 15:37> HPI: Marivel Johnson is a 69 year old female with past medical surgical history of COPD, hypothyroidism, x2, hysterectomy and GERD. Patient was sent to the ER 01/09/2025 from outpatient radiology suite for concern for kidney dysfunction after being referred for a CT scan of the chest/abdomen/pelvis for suspicion of malignancy ordered by PCP. GI has been consulted for nausea, vomiting and diarrhea since October. Patient was in surgery when I arrived to the floor. Spoke with patients Hua who provided some information. He states that the patient's nausea has improved since admission with the help of Zofran. He states that she was able to tolerate PO intake this morning without issues. Per she had a liquid BM today. No other subjective information was available given that patient was not present. ENDOSCOPY HISTORY: EGD: No known prior EGD history COLONOSCOPY: Negative Cologuard 09/14/2024 LABS AND STOOL STUDIES: Labs 01/09 - 01/10/2025: Sodium 134, potassium 3.3, BUN 21, creatinine 1.50, GFR 34, calcium 8.9 magnesium 1.6 WBC 6, Hgb 13, Hct 38, MCV 91, platelets 127 Total bilirubin 0.7, AST 48, ALT 28, Alkaline Phos 118, albumin 3.2 TSH 8.400, T4 1.45, T3 0.65 IMAGING: CT abd/pelvis w/contrast 01/09/2025: IMPRESSION: 1. Severe right hydroureteronephrosis extending to a transition point in the mid right ureter without evident obstructing stone which raises some concern for urothelial carcinoma. Wall thickening along the dome of the fluid distended bladder more likely due to partially decompressed state although differential would also include urothelial carcinoma or sequela of acute or chronic cystitis. Correlate with urinalysis and consider CT urogram for further evaluation. 2. Mild right hydronephrosis with gradual tapering of the proximal left ureter without discrete obstructing stone or mass. 3. Multiple scattered small sclerotic bone lesions throughout the spine and pelvis which raises suspicion for metastatic disease. Consider bone scan for further evaluation 4. Asymmetric left-sided predominant soft tissue densities at the breast. Correlate with mammography. 5. Nonspecific mild mesenteric edema in the abdomen and pelvis and small amount of scattered ascites. 6. Prominent diverticulosis. 7. Small sliding-type hiatal hernia. 8. Mild mediastinal and upper abdominal lymphadenopathy. 9. Small pericardial effusion. Chest Xray 01/09/2025: Impression: No acute cardiopulmonary abnormality. <Shaila Valencia APRN - Last Filed: 01/10/25 15:37> Review of Systems 2 Review of Systems: ROS unobtainable: Yes other (patient was in surgery at time I presented to the floor) <Shaila Valencia APRN - Last Filed: 01/10/25 15:37> [facility] Past Medical History Medical History: Medical History Body mass index (BMI) of 40.1 to 44.9 in adult COPD (chronic obstructive pulmonary disease) Hypothyroidism, unspecified Bilateral primary osteoarthritis of knee <Shaila Valencia APRN - Last Filed: 01/10/25 15:37> Surgical History Surgical History: Surgical History Hx of section x 2 Hx of hysterectomy <Shaila Valencia APRN - Last Filed: 01/10/25 15:37> Family History Family History: Family History Mother Uterine cancer Father Throat cancer Sibling No problems noted. <Shaila Valencia APRN - Last Filed: 01/10/25 15:37> Social History Social History: Social History Smoking packs per day: 1 Smoking cigarettes per day: 20.0 Years smoked: 20 Smoking pack-years: 20.00 Smoking status: Former smoker Second hand tobacco smoke exposure: No Alcohol intake: current Drinks per week: 7 Alcohol use details: Wine Substance use: never Substance use type: does not use Other substance usage details: Before october Do You Feel Safe in your Home?: Yes Lack of Transportation: No Lack of Food: Never True Current Housing: I Have Housing Concerned About Future Housing: No Difficulty Paying Gas/Electric Bills: No Difficulty Paying for Meds: No Currently Unemployed: No Education: High School Diploma/GED Difficulty w/ Childcare or Family Care: No Living arrangements: with family Occupation/Education: retired 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 Gender identity (if verbalized by the patient): Female Sexual Orientation (if Verbalized by the Patient): Straight or Heterosexual Spiritual care concerns: No Agree to blood products: Yes <Shaila Valencia APRN - Last Filed: 01/10/25 15:37> Meds Home Medications and Allergies Home medications: Home Medications ?Medication ?Instructions ?Recorded ?Confirmed ?Type albuterol sulfate 90 mcg/actuation 2 inh inhalation Q4 H PRN shortness 08/15/23 01/09/25 Rx aerosol inhaler of breath or wheezing #8.5 g christiano budesonide-formoterol HFA 160 2 puff inhalation BID #1 0.2 grams 02/14/24 01/09/25 Rx mcg-4.5 mcg/actuation aerosol inhaler (Symbicort) levothyroxine 100 mcg tablet 100 mcg PO DAILY #90 tabs 08/07/24 01/09/25 Rx pantoprazole 40 mg tablet,delayed 40 mg PO QAM 6 weeks #42 tabs 12/06/24 01/09/25 Rx release diclofenac sodium 75 mg 75 mg PO DAILY 01/09/2512/26 History tablet,delayed release ondansetron 4 mg disintegrating 4 mg PO Q6H PRN nausea and 01/09/25 01/09/25 Rx tablet vomiting #30 tabs <Shaila Valencia APRN - Last Filed: 01/10/25 15:37> Allergies/Adverse reactions: Allergies Allergy/AdvReac Type Severity Reaction Status Date / Time codeine AdvReac Unknown Nausea and Verified 01/10/25 13:16 Vomiting <Shaila Valencia APRN - Last Filed: 01/10/25 15:37> Vital Signs Vital Signs - 24 hr 01/09/25 11:14 01/09/25 11:23 01/09/25 12:16 Temperature Pulse Rate 77 78 Respiratory Rate 14 16 20 Blood Pressure 124/65 136/76 Pulse Oximetry 98 96 Oxygen Delivery 01/09/25 12:56 01/09/25 13:29 01/09/25 14:11 Temperature Pulse Rate 77 82 72 Respiratory Rate 19 19 12 Blood Pressure 131/60 126/70 126/70 Pulse Oximetry 98 98 96 Oxygen Delivery 01/09/25 15:12 01/09/25 18:01 01/09/25 20:00 Temperature Pulse Rate 79 82 Respiratory Rate 15 Blood Pressure 114/64 Pulse Oximetry 98 Oxygen Delivery Room Air 01/09/25 22:06 01/10/25 00:00 01/10/25 04:00 Temperature 98.4 F Pulse Rate 79 85 92 Respiratory Rate 16 Blood Pressure 100/51 L Pulse Oximetry 95 Oxygen Delivery 01/10/25 06:00 Temperature 98.2 F Pulse Rate 80 Respiratory Rate 18 Blood Pressure 106/64 Pulse Oximetry 96 Oxygen Delivery <Shaila Valencia APRN - Last Filed: 01/10/25 15:37> Exam 2 Narrative: Not done as patient was in surgery at time of visit <Shaila Valencia APRN - Last Filed: 01/10/25 15:37> Results Labs CBC & Chem 7: 01/09/25 11:55 01/10/25 04:42 <Shaila Valencia APRN - Last Filed: 01/10/25 15:37> Labs: Short CBC 01/09/25 Range/Units 11:55 WBC 6.0 (4.5-10.0) K/mm3 Hgb 12.7 (12.0-15.0) g/dL Hct 37.7 (37.0-47.0) % Plt Count 127 L (150-375) k/mm3 BMP 01/09/25 01/10/25 11:55 04:42 Sodium 137 134 L Potassium 2.8 L* 3.3 L Chloride 98 104 Carbon Dioxide 22 22 BUN 21 H 21 H Creatinine 1.66 H 1.50 H Glucose 99 95 Calcium 10.1 8.9 Liver Function 01/09/25 01/10/25 Range/Units 11:55 04:42 Total Bilirubin 1.0 0.7 (0.2-1.3) mg/dL AST 57 H 48 H (14-36) U/L ALT 32 28 (6-35) U/L Alkaline Phosphatase 136 H 118 (38-126) U/L Albumin 4.1 3.2 L (3.5-5.1) g/dL Urine 01/09/25 Range/Units 14:32 Urine Color Dark yellow (Yellow) Urine Appearance Cloudy H (Clear) Urine pH 5.5 (5.0-9.0) Ur Specific [place] 1.019 (1.001-1.035) Urine Protein 1+ H (Negative) mg/dL Urine Glucose (UA) Negative (Negative) mg/dL <Shaila Valencia APRN - Last Filed: 01/10/25 15:37> Attestation Supervising Provider Attestation I, Ted Morel MD, have provided a substantive portion of the care of this patient and discussed the patient with my Nurse Practitioner. I have reviewed any new relevant radiographic and laboratory results including medications. I agree with her documentation as noted below.?I personally performed the medical decision making and much of the history and exam for this encounter. here with nausea, vomiting and diarrhea since October, admitted for hydronephrosis and miranda, urologist has taken patient for further investigation. Wonder if this could be cause of symptom. We can offer scopes later on after acute problem is treated if not symptomatic improvement. Will follow as needed < Ted Morel MD - Last Filed: 01/10/25 17:01>
[2025-01-10] MEDS: POTASSIUM CHLORIDE INJ 40 MEQ in SODIUM CHLORIDE 0.9% IV 500 ML 130 MEQ IVPB (10:46)
--- NOTE | 2025-01-10 13:12 | PC.NURSE ---
Patient to OR per stretcher.
--- NOTE | 2025-01-10 13:16 | P.PNAN_ITS ---
Anes - Initial Pre Proc Eval Procedure: Operation Date: 01/10/25 15:30 Proposed Procedures p Cystoscopy, Bilateral Ureteroscopy, Bilateral Retrograde Pyelogram, Possible Bladder Biopsy - Steafno Regalado MD Date/Time: 01/10/25 13:16 Surgeon: Brandyn Todd MD Pre Op Diagnosis: Malignancy/Urothelial Carcinoma Suspected/Hypokale Patient Data Age: 69 Gender: F Height: 1.52 m Weight: 99.4 kg Last Vital Signs Temp 36.8 C 01/10/25 06:00 Pulse 80 01/10/25 06:00 Resp 18 01/10/25 06:00 BP 106/64 01/10/25 06:00 Pulse Ox 96 01/10/25 06:00 O2 Del Method Room Air 01/10/25 08:05 Allergies Allergy/AdvReac Type Severity Reaction Status Date / Time codeine AdvReac Unknown Nausea and Verified 01/10/25 13:16 Vomiting Home Medications ?Medication ?Instructions ?Recorded ?Confirmed ?Type albuterol sulfate 90 mcg/actuation 2 inh inhalation Q4 H PRN shortness 08/15/23 01/09/25 Rx aerosol inhaler of breath or wheezing #8.5 g christiano budesonide-formoterol HFA 160 2 puff inhalation BID #1 0.2 grams 02/14/24 01/09/25 Rx mcg-4.5 mcg/actuation aerosol inhaler (Symbicort) levothyroxine 100 mcg tablet 100 mcg PO DAILY #90 tabs 08/07/24 01/09/25 Rx pantoprazole 40 mg tablet,delayed 40 mg PO QAM 6 weeks #42 tabs 12/06/24 01/09/25 Rx release diclofenac sodium 75 mg 75 mg PO DAILY 01/09/2512/26 History tablet,delayed release ondansetron 4 mg disintegrating 4 mg PO Q6H PRN nausea and 01/09/25 01/09/25 Rx tablet vomiting #30 tabs Laboratory Tests 01/09/25 01/10/25 14:32 04:42 Sodium 134 L mmol/L (137-145) Potassium 3.3 L mmol/L (3.4-5.0) Chloride 104 mmol/L (98-107) Carbon Dioxide 22 mmol/L (22-30) Anion Gap 8 mmol/L (4-12) BUN 21 H mg/dL (7-17) Creatinine 1.50 H mg/dL (0.7-1.0) Estim Creat Clear Calc 33 ml/min Estimated GFR 34 L (59 - ) Glucose 95 mg/dL (65-110) Calcium 8.9 mg/dL (8.4-10.2) Total Bilirubin 0.7 mg/dL (0.2-1.3) AST 48 H U/L (14-36) ALT 28 U/L (6-35) Alkaline Phosphatase 118 U/L (38-126) Total Protein 6.4 g/dL (6.3-8.2) Albumin 3.2 L g/dL (3.5-5.1) TSH (Reflex) 8.400 H uIU/mL (0.465-4.68) Free T4 1.45 ng/dL (0.78-2.19) Total T3 0.65 L NG/ML (0.82-1.58) Urine Color Dark yellow (Yellow) Urine Appearance Cloudy H (Clear) Urine pH 5.5 (5.0-9.0) Ur Specific [place] 1.019 (1.001-1.035) Urine Protein 1+ H mg/dL (Negative) Urine Glucose (UA) Negative mg/dL (Negative) Urine Ketones 1+ H mg/dL (Negative) Ur Blood (Man) Negative (Negative) Urine Nitrate Negative (Negative) Urine Bilirubin Negative (Negative) Urine Urobilinogen 1.0 mg/dL (<2.0) Leukocyte Esterase Rfl Negative KRISTNE/UL (Negative) Urine RBC 3-5 H /hpf (0-2) Urine WBC 0-5 /hpf (0-3) Ur Squamous Epith Cells Occasional /hpf (Few) Urine Bacteria None seen /hpf Urine Casts 11-20 Hyaline Casts Present /lpf (None) Patient hx anesthesia problems: none Family hx anesthesia problems: none Results Review: All pre-operative results and documents have been reviewed as part of the pre- operative evaluation. [facility] Past Medical History Medical History Body mass index (BMI) of 40.1 to 44.9 in adult COPD (chronic obstructive pulmonary disease) Hypothyroidism, unspecified Bilateral primary osteoarthritis of knee Surgical History Surgical History Hx of section x 2 Hx of hysterectomy Family History Family History Mother Uterine cancer Father Throat cancer Sibling No problems noted. Social History Social History Smoking packs per day: 1 Smoking cigarettes per day: 20.0 Years smoked: 20 Smoking pack-years: 20.00 Smoking status: Former smoker Second hand tobacco smoke exposure: No Alcohol intake: current Drinks per week: 7 Alcohol use details: Wine Substance use: never Substance use type: does not use Other substance usage details: Before october Do You Feel Safe in your Home?: Yes Lack of Transportation: No Lack of Food: Never True Current Housing: I Have Housing Concerned About Future Housing: No Difficulty Paying Gas/Electric Bills: No Difficulty Paying for Meds: No Currently Unemployed: No Education: High School Diploma/GED Difficulty w/ Childcare or Family Care: No Living arrangements: with family Occupation/Education: 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 Gender identity (if verbalized by the patient): Female Sexual Orientation (if Verbalized by the Patient): Straight or Heterosexual Spiritual care concerns: No Agree to blood products: Yes Anes - Eval Final PreProcedure Day of Procedure 01/10/25 13:16 Patient weight: morbidly obese Heart: regular rate and rhythm Lungs: clear to auscultation Airway: Mallampati scale class II Neurological: alert and oriented Last oral intake: >/= 8 hours ASA classification: III Emergent: no Anesthetic plan: proceed Anesthesia type and monitoring: general LMA and standard monitoring Results Review: All pre-operative results and documents have been reviewed as part of the pre- operative evaluation. Informed Consent: The patient's anesthetic plan and its attendant risks and benefits were discussed with the patient/family/POA. Questions were solicited and answers provided to the satisfaction of the patient/family/POA.
--- NOTE | 2025-01-10 14:01 | WPDHPUPDATE1 ---
History and Physical Update Update Date/Time: 01/10/25 14:01 I have an long discussion with patient and her regarding the findings on CT suggestive of possible urothelial carcinoma involving either the patient's bladder or upper urinary tract. They are also aware that this may be metastatic at the time of diagnosis. Today's procedure will include cystoscopy with bilateral retrograde pyelography, possible bladder biopsy and possible bilateral ureteroscopy. History and Physical has been reviewed, including an updated exam of the patient. There are NO changes in the patient's condition. Risks, benefits, and alternatives have been discussed and questions answered. Patient agrees to proceed with procedure.
[2025-01-10] MEDS: ceFAZolin 2 GM in SODIUM CHLORIDE 0.9% IV 50 ML 100 ML IVPB (14:11)
--- NOTE | 2025-01-10 14:47 | S_PTH ---
PATIENT: Marivel Johnson LOC: [id number] #:[id number] AGE/SX: 69/F ROOM: 344 RE01/09/[address]: Azeem Valdze MD : 1955 BED: 01 DIS: 01/12/2025 SPEC #: [id number] RECD: 01/11/25 07:16 STATUS: DIYA REQ #: [id number] NO: 01/10/25 14:[address]: Stefano Regalado DEPT: [facility] Surgical RECD BY: Remedios Grover ENTERED: 01/11/25 07:17 SP TYPE: Surgical OTHR DR: MD Brandyn Singh MD Etai Goldenberg, MD Mafeth A. Lim, DO Megan Lutman, APRN Edmundo A. Rodriguez-Frias, MD Patricia U. Teschke, MD Tissues: A - Ureter B - Ureter C - Bladder Biopsy D - Urine E - Pelvic Washing F - Pelvic Washing Procedures: Hematoxylin and Eosin Stain Cell Block Gross and Microscopic Level 4 Cytopathology Cytospin
[2025-01-10] MEDS: LACTATED RINGERS 1,000 ML 30 ML IV CONT ×2 (15:27→15:28)
--- NOTE | 2025-01-10 15:34 | P.OP_ITS ---
Procedure Note - Detailed Date of Procedure 01/10/25 Pre-op Diagnosis Bilateral hydronephrosis Post-op Diagnosis Same Procedure Performed Cystoscopy, bilateral retrograde ureteral catheterization and retrograde pyelogram bilateral ureteroscopy with ureteral biopsy, bladder biopsy Surgeon Stefano Regalado MD Anesthesia General Findings 1. Bilateral long concentric mid-ureteral narrowing most consistent extrinsic compression or retroperitoneal fibrosis. 2. Mild bladder inflammation most consistent with catheter cystitis 2. No obvious/ david urothelial carcinoma involving the upper urinary. * Urine for cytology collected from each pelvis and bladder * Bilateral ureteral biopsy and bladder biopsy obtained Description of Procedure Patient is brought to the operative suite where she has prepped draped in routine sterile fashion while dorsal lithotomy position the uneventful induction of a general LMA anesthetic. Cystoscopy undertaken with a 21 F rigid cystoscope. Urine was collected from the bladder for cytology. Bladder seems to be thick walled and somewhat desmoplastic but shows only inflammation no david neoplasm. I did obtain a biopsy of an inflamed area and cauterized the base with a Bugbee electrode. Separate guidewires and ureteral catheters were used to obtain washings of the renal pelvis for cytology bilaterally. Retrograde pyelography using separate ureteral catheters demonstrates long concentric narrowing of each mid ureter, mo st consistent with either extrinsic compression or retroperitoneal fibrosis. Bilateral ureteroscopy was obtained there were no obvious sites of upper tract urothelial carcinoma. Again there was obvious narrowing of each mid ureter no david neoplasm. I did place bilateral 6 F double-J ureteral stents after obtaining biopsies from each ureter at points of obstruction. Drains No Packing No Pathology Yes Complications No immediate complications
[2025-01-10] MEDS: fentaNYL CITRATE INJ (*CRX) 100 MCG/2 ML VIAL 25 MCG IV PUSH ×2 (15:54→16:11)
--- NOTE | 2025-01-10 18:41 | WPDONCCN ---
Assessment and Plan Assessment and plan (1) Metastatic carcinoma to bone: Code(s): C79.51 - Secondary malignant neoplasm of bone Status: Acute Assessment and Plan: This is a pleasant 69-year-old female came into the hospital nausea vomiting for the last 3 months duration. Patient informed me that she had this left breast mass for about for 5 years duration which is slowly getting bigger and harder. Her mammogram was done on December 28 showed bilateral breast asymmetry with architectural distortion. Additional ultrasound and spot compression was recommended. CT scan chest abdomen pelvis showed severe right hydroureteronephrosis with small sclerotic bone lesions throughout the spine and the pelvis as well as mild mediastinal and upper abdominal lymphadenopathy. Cystoscopy finding also noted. These findings are worrisome for metastatic breast cancer. I will check CA 15-3. We will consult Dr. Ren for breast biopsy. I plan to perform PET scan as an outpatient. I have answered all the questions the patient and the family satisfaction. HPI Data of Consult Date/Time: 01/10/25 18:41 Requesting Physician: Brandyn Todd MD Primary Care Provider: Ana Rosa Jones DO Consult Narrative Narrative: Marivel Johnson is a 69 year old female without any previous history of malignancy who has history of COPD, hypothyroidism and arthritis came into the hospital with 3 month history of nausea and diarrhea. Patient informed me that she found this lump in the left breast somewhat for 5 years ago which is recently getting harder. Patient had screening mammogram done on December 28, 2024 showed bilateral breast asymmetry with possible architectural distortion in the upper outer quadrant of both breasts. Her mammogram previous to that was more than 5 years ago. She denies any weight loss. She had CT chest abdomen and pelvis done that showed mild mediastinal and upper abdominal lymphadenopathy multiple scattered sclerotic bone lesions throughout the spine in the pelvis suspicious for metastatic disease along with severe right-sided hydroureteronephrosis concerning for urothelial carcinoma. Patient had cystoscopy done today with ureteral biopsy. 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 Review of Systems Review of Systems: Twelve point review of system was reviewed [facility] Past Medical History Medical History (Updated 01/10/25 @ 18:45 by Shant Montanez MD) Metastatic carcinoma to bone Body mass index (BMI) of 40.1 to 44.9 in adult COPD (chronic obstructive pulmonary disease) Hypothyroidism, unspecified Bilateral primary osteoarthritis of knee Surgical History Surgical History Hx of section x 2 Hx of hysterectomy Family History Family History Mother Uterine cancer Father Throat cancer Sibling No problems noted. Social History Social History Smoking packs per day: 1 Smoking cigarettes per day: 20.0 Years smoked: 20 Smoking pack-years: 20.00 Smoking status: Former smoker Second hand tobacco smoke exposure: No Alcohol intake: current Drinks per week: 7 Alcohol use details: Wine Substance use: never Substance use type: does not use Other substance usage details: Before october Do You Feel Safe in your Home?: Yes Lack of Transportation: No Lack of Food: Never True Current Housing: I Have Housing Concerned About Future Housing: No Difficulty Paying Gas/Electric Bills: No Difficulty Paying for Meds: No Currently Unemployed: No Education: High School Diploma/GED Difficulty w/ Childcare or Family Care: No Living arrangements: with family Occupation/Education: retired 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 Gender identity (if verbalized by the patient): Female Sexual Orientation (if Verbalized by the Patient): Straight or Heterosexual Spiritual care concerns: No Agree to blood products: Yes Meds Home Medications and Allergies Home Medications ?Medication ?Instructions ?Recorded ?Confirmed ?Type albuterol sulfate 90 mcg/actuation 2 inh inhalation Q4H PRN shortness 08/15/23 01/09/25 Rx aerosol inhaler of breath or wheezing #8.5 grams budesonide-formoterol HFA 160 2 puff inhalation BID #10.2 grams 02/14/24 01/09/25 Rx mcg-4.5 mcg/actuation aerosol inhaler (Symbicort) levothyroxine 100 mcg tablet 100 mcg PO DAILY #90 tabs 08/07/24 01/09/25 Rx pantoprazole 40 mg tablet,delayed 40 mg PO QAM 6 weeks #42 tabs 12/06/24 01/09/25 Rx release diclofenac sodium 75 mg 75 mg PO DAILY 01/09/25 01/09/25 History tablet,delayed release ondansetron 4 mg disintegrating 4 mg PO Q6H PRN nausea and 01/09/25 01/09/25 Rx tablet vomiting #30 tabs Allergies Allergy/AdvReac Type Severity Reaction Status Date / Time codeine AdvReac Unknown Nausea and Verified 01/10/25 13:16 Vomiting Vital Signs Vital Signs - 24 hr 01/09/25 20:00 01/09/25 22:06 01/10/25 00:00 Temperature 36.9 C Pulse Rate 82 79 85 Respiratory Rate 16 Blood Pressure 100/51 L Pulse Oximetry 95 Oxygen Delivery Oxygen Flow Rate 01/10/25 04:00 01/10/25 06:00 01/10/25 08:05 Temperature 36.8 C Pulse Rate 92 80 Respiratory Rate 18 Blood Pressure 106/64 Pulse Oximetry 96 Oxygen Delivery Room Air Oxygen Flow Rate 01/10/25 08:05 01/10/25 12:06 01/10/25 13:10 Temperature 36.9 C Pulse Rate 76 79 81 Respiratory Rate 16 Blood Pressure 121/67 Pulse Oximetry 95 Oxygen Delivery Room Air Oxygen Flow Rate 01/10/25 15:27 01/10/25 15:35 01/10/25 15:40 Temperature 36.2 C L Pulse Rate 64 68 67 Respiratory Rate 17 16 16 Blood Pressure 133/75 132/68 107/52 L Pulse Oximetry 100 100 100 Oxygen Delivery Simple Face Mask Simple Face Mask Simple Face Mask Oxygen Flow Rate 10 10 10 01/10/25 15:55 01/10/25 16:10 01/10/25 16:25 Temperature Pulse Rate 69 73 76 Respiratory Rate 18 16 14 Blood Pressure 126/69 130/68 125/54 L Pulse Oximetry 100 92 92 Oxygen Delivery Simple Face Mask Room Air Room Air Oxygen Flow Rate 10 01/10/25 17:05 Temperature Pulse Rate 69 Respiratory Rate Blood Pressure Pulse Oximetry Oxygen Delivery Oxygen Flow Rate Exam Narrative: Lungs are clear to auscultation bilaterally Cardiovascular regular rate rhythm no murmurs Abdomen soft nontender nondistended Extremities no edema Bilateral breast examination showed large left breast mass with hardening without any external lymphadenopathy Results Labs 01/09/25 11:55 01/10/25 04:42 Labs: BMP 01/10/25 04:42 Sodium 134 L Potassium 3.3 L Chloride 104 Carbon Dioxide 22 BUN 21 H Creatinine 1.50 H Glucose 95 Calcium 8.9 Liver Function 01/10/25 Range/Units 04:42 Total Bilirubin 0.7 (0.2-1.3) mg/dL AST 48 H (14-36) U/L ALT 28 (6-35) U/L Alkaline Phosphatase 118 (38-126) U/L Albumin 3.2 L (3.5-5.1) g/dL
[2025-01-10] MEDS: PANTOPRAZOLE 40 MG TABLET PO (18:51)
[2025-01-10] MEDS: ONDANSETRON INJ 4 MG/2 ML VIAL IV PUSH (19:59)
[2025-01-10] MEDS: ACETAMINOPHEN 325 MG TABLET 650 MG PO (20:04)
[2025-01-11] VITALS (10 sets, daily range): BP systolic 101–146; BP diastolic 44–97; PULSE 77–114; RESP 16–20; TEMP 36.4–36.7; O2SAT 93–99
[2025-01-11] MEDS: ONDANSETRON INJ 4 MG/2 ML VIAL IV PUSH ×4 (00:24→22:23)
[2025-01-11 06:33] LABS: Hematocrit 32.2 % (37.0-47.0); Hemoglobin 10.5 g/dL (12.0-15.0); Immature Granulocyte Percent A 0.6 % (0-0.5); Lymphocytes Absolute Auto 1.17 K/mm3 (0.9-3.2); Mean Corpuscular HGB Conc 32.6 g/dl (32-36); Mean Corpuscular Hemoglobin 30.5 pg (26-34); Mean Corpuscular Volume 93.6 fl (80-100); Nucleated Red Blood Cells Absolute Auto 0.000 K/mm3 (0.0-0.012); Nucleated Red Blood Cells Perc 0.0 % (0.0-0.2); Platelet Count Result 109 k/mm3 (150-375); Red Blood Count 3.44 M/mm3 (4.2-5.4); White Blood Count 5.3 K/mm3 (4.5-10.0)
[2025-01-11] MEDS: LEVOTHYROXINE SODIUM INJ 100 MCG/5 ML VIAL 50 MCG IV PUSH (06:51)
[2025-01-11 06:55] LABS: Alanine Aminotransferase 23 U/L (6-35); Albumin Level 3.1 g/dL (3.5-5.1); Alkaline Phosphatase 110 U/L (38-126); Anion Gap 11 mmol/L (4-12); Aspartate Amino Transferase 42 U/L (14-36); Bilirubin,Total 0.6 mg/dL (0.2-1.3); Blood Urea Nitrogen 18 mg/dL (7-17); Calcium 8.5 mg/dL (8.4-10.2); Carbon Dioxide 20 mmol/L (22-30); Chloride 105 mmol/L (98-107); Estimated CRCL calculation 26 ml/min; Estimated Glomerular Filt Rate 26; Glucose 92 mg/dL (65-110); Potassium 3.1 mmol/L (3.4-5.0); Sodium 136 mmol/L (137-145); Total Protein 6.1 g/dL (6.3-8.2)
--- NOTE | 2025-01-11 07:07 | P.CDI_ITS ---
CDI Query Clarification Request BMI: 42.8 Nutritional Diagnostic Statement: Please refer to the comprehensive nutrition assessment for further information. If you agree with diagnosis of Severe protein calorie malnutrition related to chronic nausea, vomiting, loss of appetite as evidenced by weight loss -11%/4 months, intakes <75% needs >1 month. Please specify severity if known: * Mild * Moderate * Severe * Other/Unknown <Anjelica Alva RN - Last Filed: 01/11/25 07:08> Clarified Diagnosis Clarified Diagnosis: Moderate <Yvrose Fernandez APRN - Last Filed: 01/11/25 15:59>
[2025-01-11] MEDS: FLUTICASONE/SALMETEROL 115-21 MCG INHALER 1 PUFF 2 PUFF INHALATION ×2 (07:56→20:13)
[2025-01-11] MEDS: PANTOPRAZOLE 40 MG TABLET PO (08:02)
--- NOTE | 2025-01-11 08:17 | P.PNIM_ITS ---
Progress Note: A&P Assessment and Plan (1) Bladder wall thickening: Code(s): N32.89 - Other specified disorders of bladder Status: Acute Assessment and Plan: Three-month history of unintended weight loss and nausea, vomiting, diarrhea. Concerns for malignancy with presenting symptoms. See CT abdomen pelvis results in HPI. -urology consult-> plan for bilateral ureteral stent placement and biopsy in OR on 01/10 -Jacobo catheter placed -oncology consulted 01/10: Pending onc consult, stent placement and biopsy today around 1400. 01/11: Uro recs today: Plan - Creatinine bumped up today at 1.92. - WBC is wnl - We discussed stents and what to expect with the stents including intermittent bloody urine and flank discomfort. - patient to be discharged with Jacobo catheter and should follow up in the office in the next 2 weeks with a renal ultrasound for re-evaluation of hydronephrosis. - Patient will have chronic stents until resolution of complicating issues. Stent exchange in [address] Regalado Onc recs 01/10 PM: This is a pleasant 69-year-old female came into the hospital nausea vomiting for the last 3 months duration. Patient informed me that she had this left breast mass for about for 5 years duration which is slowly getting bigger and harder. Her mammogram was done on December 28 showed bilateral breast asymmetry with architectural distortion. Additional ultrasound and spot compression was recommended. CT scan chest abdomen pelvis showed severe right hydroureteronephrosis with small sclerotic bone lesions throughout the spine and the pelvis as well as mild mediastinal and upper abdominal lymphadenopathy. Cystoscopy finding also noted. These findings are worrisome for metastatic breast cancer. I will check CA 15-3. We will consult Dr. Ren for breast biopsy. I plan to perform PET scan as an outpatient. I have answered all the questions the patient and the family satisfaction. -Person who performs breast biopsy not available to perform, biopsy will need to be outpt. (2) Nausea & vomiting: Qualifiers: Vomiting type: unspecified Qualified Code(s): R11.2 - Nausea with vomiting, unspecified Code(s): R11.2 - Nausea with vomiting, unspecified Status: Acute Assessment and Plan: Three month history of nausea and vomiting. Patient has upcoming appointment on 02/04 with Gastroenterology for her N/V/D. Family request GI consult while inpatient. Prominent diverticulosis and a small hiatal hernia noted on CT. No definitive etiology of ongoing GI symptoms, but likely likely related to new found carcinoma. -GI consult -symptom management with Zofran p.r.n. -patient will be NPO at midnight for OR. Can further investigate and trial p.o. intake after procedure 01/10: Denies today, will evaluate after procedure. Zofran PRN. 01/11: Nauseous today, PRN Zofran. GI with recs to continue antiemetics, to continue to see pt. Wanting pt to be able to hold down food before discharge. Pt requesting chocolate ensure shakes today, ordered. (3) Acute kidney injury: Code(s): N17.9 - Acute kidney failure, unspecified Status: Acute Assessment and Plan: ROMARIO noted in PCP office. CT read severe right hydroureteronephrosis extending to a transition point in the mid right ureter without evident obstructing stone which raises some concern for urothelial carcinoma. Wall thickening along the dome of the fluid distended bladder more likely due to partially decompressed state although differential would also include urothelial carcinoma or sequela of acute or chronic cystitis. Correlate with urinalysis and consider CT urogram for further evaluation. Mild right hydronephrosis with gradual tapering of the proximal left ureter without discrete obstructing stone or mass -urology and oncology following -creatinine initially 1.9 in ED--> improved to 1.66 after 2 L LR bolus -continue to trend renal function 01/10: Creatinine continues to decrease, now 1.50, will continue to follow 01/11: Creatinine 1.92 today, will encourage fluids. Procedure yesterday may have impacted. (4) Hypokalemia due to excessive gastrointestinal loss of potassium: Code(s): E87.6 - Hypokalemia Status: Acute Assessment and Plan: Potassium 2.8 on arrival to ED. Likely from GI loss. -replaced with potassium chloride 20 mEq IV and 40 mEq p.o. -trend potassium and replace as needed -control nausea to minimize loss 01/10: -K continues to be low at 3.3, will replete via IV again today due to NPO status. Continue with AM labs. 01/11: -K continues to be low at 3.1, will replete via IV today due to not being able to tolerate PO in ED per pt. (5) Hypothyroidism, unspecified: Qualifiers: Hypothyroidism type: unspecified Qualified Code(s): E03.9 - Hypothyroidism, unspecified Code(s): E03.9 - Hypothyroidism, unspecified Status: Acute Assessment and Plan: Patient has been unable to take her levothyroxine for about 5 days due to her GI symptoms. TSH resulted 7.1 with labs ordered by PCP. -TSH reflex ordered -will start patient on IVP levothyroxine at 50% home dose -resume home dose once tolerating p.o. and after NPO status 01/10: -TSH 8.400, T3 0.65, T4 WDL -Continue with levothyroxine IVP until not NPO and can tolerate PO home dose 01/11: -Resume PO home dose Synthroid today, IV dose d/c Plan Diet: Regular GI prophylaxis: Pantoprazole DVT prophylaxis: SCDs lines/drains: PIV, Jacobo Fluids: N/A Code status: Full D/C tomorrow pending nausea and electrolyte status. D/C with onc f/u for breast biopsy and PET scan. Time Spent With Patient Time: 45 Subjective Date/time seen: 01/11/25 1119 Interval history: Pt resting in bed with at the bedside upon my arrival. Pt nauseous today, lying in bed. Pt wants to go home. Updated her on the plan for outpatient breast biopsy and PET scan. Review of Systems Review of Systems: All systems reviewed & are unremarkable except as noted in HPI and below Exam Narrative: GENERAL: non-toxic appearing, in no acute distress. Obese. HEAD: Normocephalic, atraumatic. EYES: PERRLA. Conjunctivae clear. NOSE: Normal no drainage. THROAT: Pharynx clear, no exudate. NECK: Trachea midline. No adenopathy, no masses. RESPIRATORY: Airway patent, respirations nonlabored. CTA. CARDIOVASCULAR: Regular rate and rhythm GASTROINTESTINAL: Abdomen is soft and nontender. No organomegaly. Bowel sounds normal in all quadrants. GENITOURINARY: Jacobo catheter recently placed. Moderate output noted in bag MUSCULOSKELETAL: Moves all extremities. No gross deformities. No calf tenderness. SKIN: Warm, dry, normal color. BREAST: L with inverted nipple with induration surrounding NEURO: A&O X4. Speech clear PSYCHIATRIC: Normal interaction Objective Data Vital Signs Vital Signs: Vital Signs - 24 hr 01/10/25 12:06 01/10/25 13:10 01/10/25 15:27 Temperature 98.4 F 97.1 F L Pulse Rate 79 81 64 Respiratory Rate 16 17 Blood Pressure 121/67 133/75 Pulse Oximetry 95 100 Oxygen Delivery Room Air Simple Face Mask Oxygen Flow Rate 10 01/10/25 15:35 01/10/25 15:40 01/10/25 15:55 Temperature Pulse Rate 68 67 69 Respiratory Rate 16 16 18 Blood Pressure 132/68 107/52 L 126/69 Pulse Oximetry 100 100 100 Oxygen Delivery Simple Face Mask Simple Face Mask Simple Face Mask Oxygen Flow Rate 10 10 10 01/10/25 16:10 01/10/25 16:25 01/10/25 17:05 Temperature Pulse Rate 73 76 69 Respiratory Rate 16 14 Blood Pressure 130/68 125/54 L Pulse Oximetry 92 92 Oxygen Delivery Room Air Room Air Oxygen Flow Rate 01/10/25 20:00 01/10/25 21:19 01/11/25 00:00 Temperature 97.7 F Pulse Rate 79 85 86 Respiratory Rate 18 Blood Pressure 125/54 L Pulse Oximetry 96 Oxygen Delivery Oxygen Flow Rate 01/11/25 04:00 01/11/25 07:56 01/11/25 07:56 Temperature Pulse Rate 86 84 84 Respiratory Rate 20 20 Blood Pressure Pulse Oximetry 93 Oxygen Delivery Room Air Oxygen Flow Rate Intake/Output Intake/Output: Intake & Output 01/08/25 01/09/25 01/10/25 01/11/25 23:59 23:59 23:59 23:59 Intake Total 2220 400 Output Total 1050 Balance 2220 -650 Meds/Results Medications: Active Medications Generic Name Dose Route Start Last Admin Trade Name Freq PRN Reason Stop Dose Admin Acetaminophen 650 mg 01/09/25 14:53 01/10/25 20:04 Acetaminophen 325 Mg Tablet PO 650 mg Q4H PRN Administration Mild Pain (1-3) or Fever Albuterol/Ipratropium 3 ml 01/09/25 19:41 Ipratropium 0.5 Mg/Albuterol Sulfate 2.5 Mg (Base) Ampul.Neb 3 Ml INHALATION Q6HRT PRN Shortness Of Breath Or Wheezing Levothyroxine Sodium 100 mcg 01/10/25 06:30 01/11/25 06:52 Levothyroxine Sodium 100 Mcg Tablet PO Not Given DAILY@0630 [facility] Levothyroxine Sodium 50 mcg 01/10/25 06:30 01/11/25 06:51 Levothyroxine Sodium Inj 100 Mcg/5 Ml Vial IV PUSH 50 mcg DAILY@0630 CINTIA Administration Ondansetron HCl 4 mg 01/09/25 14:53 01/11/25 00:24 Ondansetron Inj 4 Mg/2 Ml Vial IV PUSH 4 mg Q4H PRN Administration Nausea Pantoprazole Sodium 40 mg 01/10/25 09:00 01/11/25 08:02 Pantoprazole 40 Mg Tablet PO 40 mg QAM CINTIA Administration Fluticasone/Salmeterol 2 puff 01/09/25 20:00 01/11/25 07:56 Fluticasone/Salmeterol 115-21 Mcg Inhaler 1 Puff INHALATION 2 puff Q12HRT CINTIA Administration Radiology Results: ITS Impressions Chest/Abdomen/Pelvis CT 01/09/25 12:53 IMPRESSION: 1. Severe right hydroureteronephrosis extending to a transition point in the mid right ureter without evident obstructing stone which raises some concern for urothelial carcinoma. Wall thickening along the dome of the fluid distended bladder more likely due to partially decompressed state although differential wo uld also include urothelial carcinoma or sequela of acute or chronic cystitis. Correlate with urinalysis and consider CT urogram for further evaluation. 2. Mild right hydronephrosis with gradual tapering of the proximal left ureter without discrete obstructing stone or mass. 3. Multiple scattered small sclerotic bone lesions throughout the spine and pelvis which raises suspicion for metastatic disease. Consider bone scan for further evaluation 4. Asymmetric left-sided predominant soft tissue densities at the breast. Correlate with mammography. 5. Nonspecific mild mesenteric edema in the abdomen and pelvis and small amount of scattered ascites. 6. Prominent diverticulosis. 7. Small sliding-type hiatal hernia. 8. Mild mediastinal and upper abdominal lymphadenopathy. 9. Small pericardial effusion. Chest X-Ray 01/09/25 12:59 Impression: No acute cardiopulmonary abnormality. Retrograde Pyelogram 01/10/25 16:00 IMPRESSION: 1. Severe right-sided and moderate left-sided hydronephrosis likely secondary to long strictures with smooth mucosal margins at the bilateral mid ureters. No evident urothelial irregularities to elevate suspicion for malignancy. 2. Placement of bilateral internal ureteral stents in expected position. See procedure note for further detail. Labs Labs: Laboratory Results - last 24 hr 01/10/25 01/11/25 04:42 05:56 WBC 5.3 RBC 3.44 L Hgb 10.5 L Hct 32.2 L MCV 93.6 MCH 30.5 MCHC 32.6 RDW 14.0 Plt Count 109 L MPV 9.9 Immature Gran % (Auto) 0.6 H Neut % (Auto) 69.1 Lymph % (Auto) 22.0 [place] % (Auto) 6.2 Eos % (Auto) 1.7 Baso % (Auto) 0.4 Lymph # (Auto) 1.17 [place] # (Auto) 0.3 Eos # (Auto) 0.1 Baso # (Auto) 0.0 Abs Immat Gran (auto) 0.03 Absolute Neuts (auto) 3.7 Absolute Nucleated RBC 0.000 Nucleated RBC % 0.0 Sodium 136 L Potassium 3.1 L Chloride 105 Carbon Dioxide 20 L Anion Gap 11 BUN 18 H Creatinine 1.92 H Estim Creat Clear Calc 26 Estimated GFR 26 L Glucose 92 Calcium 8.5 Total Bilirubin 0.6 AST 42 H ALT 23 Alkaline Phosphatase 110 Total Protein 6.1 L Albumin 3.1 L Total T3 0.65 L Quality VTE Prophylaxis VTE prophylaxis: mechanical ordered
--- NOTE | 2025-01-11 08:57 | WPDUROPN2 ---
Progress Note: A&P Assessment and Plan (1) Acute kidney injury: Code(s): N17.9 - Acute kidney failure, unspecified Status: Acute (2) Obstruction, uropathy: Code(s): N13.9 - Obstructive and reflux uropathy, unspecified Status: Acute (3) Hydroureteronephrosis: Code(s): N13.30 - Unspecified hydronephrosis Status: Acute Plan - Creatinine bumped up today at 1.92. - WBC is wnl - We discussed stents and what to expect with the stents including intermittent bloody urine and flank discomfort. - patient to be discharged with Jacobo catheter and should follow up in the office in the next 2 weeks with a renal ultrasound for re-evaluation of hydronephrosis. - Patient will have chronic stents until resolution of complicating issues. Stent exchange in [address] Regalado Subjective Subjective Date/Time Seen: 01/11/25 08:57 Interval history: POD 1 Cystoscopy, bilateral retrograde ureteral catheterization and retrograde pyelogram bilateral ureteroscopy with ureteral biopsy, bladder biopsy. Patient Reports that she is doing well with the stents. She denies any discomfort at this time. Jacobo is draining pink urine. Review of Systems Review of Systems: All systems reviewed & are unremarkable except as noted in HPI and below Exam Const: General: comfortable and no acute distress HENMT: Mouth: Yes moist mucous membranes Eyes: General: appearance normal, both eyes and all related structures Resp: Effort & Inspection: normal respiratory effort GI: GI Palp: Yes Soft to palpation Urinary Catheter: Urinary Catheter: patent and draining and urine pink Skin: General skin exam: normal color Neuro: Speech: normal speech Psych: Mental Status: mental status grossly normal Affect: normal affect Objective Data Vital Signs Vital Signs: Vital Signs - 24 hr 01/10/25 12:06 01/10/25 13:10 01/10/25 15:27 Temperature 98.4 F 97.1 F L Pulse Rate 79 81 64 Respiratory Rate 16 17 Blood Pressure 121/67 133/75 Pulse Oximetry 95 100 Oxygen Delivery Room Air Simple Face Mask Oxygen Flow Rate 10 01/10/25 15:35 01/10/25 15:40 01/10/25 15:55 Temperature Pulse Rate 68 67 69 Respiratory Rate 16 16 18 Blood Pressure 132/68 107/52 L 126/69 Pulse Oximetry 100 100 100 Oxygen Delivery Simple Face Mask Simple Face Mask Simple Face Mask Oxygen Flow Rate 10 10 10 01/10/25 16:10 01/10/25 16:25 01/10/25 17:05 Temperature Pulse Rate 73 76 69 Respiratory Rate 16 14 Blood Pressure 130/68 125/54 L Pulse Oximetry 92 92 Oxygen Delivery Room Air Room Air Oxygen Flow Rate 01/10/25 20:00 01/10/25 21:19 01/11/25 00:00 Temperature 97.7 F Pulse Rate 79 85 86 Respiratory Rate 18 Blood Pressure 125/54 L Pulse Oximetry 96 Oxygen Delivery Oxygen Flow Rate 01/11/25 04:00 01/11/25 06:00 01/11/25 07:56 Temperature 97.5 F L Pulse Rate 86 84 84 Respiratory Rate 16 20 Blood Pressure 101/44 L Pulse Oximetry 94 93 Oxygen Delivery Room Air Oxygen Flow Rate 01/11/25 07:56 Temperature Pulse Rate 84 Respiratory Rate 20 Blood Pressure Pulse Oximetry Oxygen Delivery Oxygen Flow Rate Intake/Output Intake/Output: Intake & Output 01/08/25 01/09/25 01/10/25 01/11/25 23:59 23:59 23:59 23:59 Intake Total 2220 400 400 Output Total 1050 1400 Balance 2220 -650 -1000 Meds/Results Medications: Active Medications Generic Name Dose Route Start Last Admin Trade Name Freq PRN Reason Stop Dose Admin Acetaminophen 650 mg 01/09/25 14:53 01/10/25 20:04 Acetaminophen 325 Mg Tablet PO 650 mg Q4H PRN Administration Mild Pain (1-3) or Fever Albuterol/Ipratropium 3 ml 01/09/25 19:41 Ipratropium 0.5 Mg/Albuterol Sulfate 2.5 Mg (Base) Ampul.Neb 3 Ml INHALATION Q6HRT PRN Shortness Of Breath Or Wheezing Levothyroxine Sodium 100 mcg 01/10/25 06:30 01/11/25 06:52 Levothyroxine Sodium 100 Mcg Tablet PO Not Given DAILY@0630 [facility] Ondansetron HCl 4 mg 01/09/25 14:53 01/11/25 00:24 Ondansetron Inj 4 Mg/2 Ml Vial IV PUSH 4 mg Q4H PRN Administration Nausea Pantoprazole Sodium 40 mg 01/10/25 09:00 01/11/25 08:02 Pantoprazole 40 Mg Tablet PO 40 mg QAM CINTIA Administration Potassium Chloride 40 meq 01/11/25 09:00 Potassium Chloride 20 Meq Packet (For Liquid) PO DAILY CINTIA Fluticasone/Salmeterol 2 puff 01/09/25 20:00 01/11/25 07:56 Fluticasone/Salmeterol 115-21 Mcg Inhaler 1 Puff INHALATION 2 puff Q12HRT CINTIA Administration Radiology Results: ITS Impressions Chest/Abdomen/Pelvis CT 01/09/25 12:53 IMPRESSION: 1. Severe right hydroureteronephrosis extending to a transition point in the mid right ureter without evident obstructing stone which raises some concern for urothelial carcinoma. Wall thickening along the dome of the fluid distended bladder more likely due to partially decompressed state although differential would also include urothelial carcinoma or sequela of acute or chronic cystitis. Correlate with urinalysis and consider CT urogram for further evaluation. 2. Mild right hydronephrosis with gradual tapering of the proximal left ureter without discrete obstructing stone or mass. 3. Multiple scattered small sclerotic bone lesions throughout the spine and pelvis which raises suspicion for metastatic disease. Consider bone scan for further evaluation 4. Asymmetric left-sided predominant soft tissue densities at the breast. Correlate with mammography. 5. Nonspecific mild mesenteric edema in the abdomen and pelvis and small amount of scattered ascites. 6. Prominent diverticulosis. 7. Small sliding-type hiatal hernia. 8. Mild mediastinal and upper abdominal lymphadenopathy. 9. Small pericardial effusion. Chest X-Ray 01/09/25 12:59 Impression: No acute cardiopulmonary abnormality. Retrograde Pyelogram 01/10/25 16:00 IMPRESSION: 1. Severe right-sided and moderate left-sided hydronephrosis likely secondary to long strictures with smooth mucosal margins at the bilateral mid ureters. No evident urothelial irregularities to elevate suspicion for malignancy. 2. Placement of bilateral internal ureteral stents in expected position. See procedure note for further detail. Labs Labs: Laboratory Results - last 24 hr 01/10/25 01/11/25 04:42 05:56 WBC 5.3 RBC 3.44 L Hgb 10.5 L Hct 32.2 L MCV 93.6 MCH 30.5 MCHC 32.6 RDW 14.0 Plt Count 109 L MPV 9.9 Immature Gran % (Auto) 0.6 H Neut % (Auto) 69.1 Lymph % (Auto) 22.0 Rice % (Auto) 6.2 Eos % (Auto) 1.7 Baso % (Auto) 0.4 Lymph # (Auto) 1.17 Rice # (Auto) 0.3 Eos # (Auto) 0.1 Baso # (Auto) 0.0 Abs Immat Gran (auto) 0.03 Absolute Neuts (auto) 3.7 Absolute Nucleated RBC 0.000 Nucleated RBC % 0.0 Sodium 136 L Potassium 3.1 L Chloride 105 Carbon Dioxide 20 L Anion Gap 11 BUN 18 H Creatinine 1.92 H Estim Creat Clear Calc 26 Estimated GFR 26 L Glucose 92 Calcium 8.5 Total Bilirubin 0.6 AST 42 H ALT 23 Alkaline Phosphatase 110 Total Protein 6.1 L Albumin 3.1 L Total T3 0.65 L
[2025-01-11] MEDS: POTASSIUM CHLORIDE INJ 40 MEQ in SODIUM CHLORIDE 0.9% IV 500 ML 130 MEQ IVPB (12:23)
[2025-01-12] VITALS: PULSE 86
[2025-01-12 04:00] VITALS: PULSE 84
[2025-01-12 06:00] VITALS: BP 113/53; PULSE 81; RESP 16; TEMP 36.9; O2SAT 94
[2025-01-12 06:07] LABS: Hematocrit 31.0 % (37.0-47.0); Hemoglobin 10.3 g/dL (12.0-15.0); Immature Granulocyte Percent A 0.9 % (0-0.5); Immature Platelet Fraction Pct 1.6 % (0.9-11.2); Lymphocytes Absolute Auto 1.10 K/mm3 (0.9-3.2); Mean Corpuscular HGB Conc 33.2 g/dl (32-36); Mean Corpuscular Hemoglobin 31.0 pg (26-34); Mean Corpuscular Volume 93.4 fl (80-100); Nucleated Red Blood Cells Absolute Auto 0.000 K/mm3 (0.0-0.012); Nucleated Red Blood Cells Perc 0.0 % (0.0-0.2); Platelet Count Result 116 k/mm3 (150-375); Red Blood Count 3.32 M/mm3 (4.2-5.4); White Blood Count 4.5 K/mm3 (4.5-10.0)
[2025-01-12 06:29] LABS: Alanine Aminotransferase 20 U/L (6-35); Albumin Level 3.0 g/dL (3.5-5.1); Alkaline Phosphatase 109 U/L (38-126); Anion Gap 9 mmol/L (4-12); Aspartate Amino Transferase 39 U/L (14-36); Bilirubin,Total 0.6 mg/dL (0.2-1.3); Blood Urea Nitrogen 15 mg/dL (7-17); Calcium 8.1 mg/dL (8.4-10.2); Carbon Dioxide 21 mmol/L (22-30); Chloride 108 mmol/L (98-107); Estimated CRCL calculation 31 ml/min; Estimated Glomerular Filt Rate 32; Glucose 94 mg/dL (65-110); Potassium 3.0 mmol/L (3.4-5.0); Sodium 138 mmol/L (137-145); Total Protein 6.0 g/dL (6.3-8.2)
[2025-01-12] MEDS: LEVOTHYROXINE SODIUM 100 MCG TABLET PO (06:31)
[2025-01-12] MEDS: ONDANSETRON INJ 4 MG/2 ML VIAL IV PUSH ×2 (06:32→15:39)
[2025-01-12 07:40] VITALS: PULSE 85; RESP 18
[2025-01-12] MEDS: FLUTICASONE/SALMETEROL 115-21 MCG INHALER 1 PUFF 2 PUFF INHALATION (07:45)
[2025-01-12] MEDS: PANTOPRAZOLE 40 MG TABLET PO (09:15)
[2025-01-12] MEDS: POTASSIUM CHLORIDE 20 MEQ PACKET (FOR LIQUID) 40 MEQ PO (12:32)
--- NOTE | 2025-01-12 13:14 | PM.IMPN ---
Subjective Date/time seen: 01/12/25 13:14 Objective Data Vital Signs Vital Signs: Vital Signs - 24 hr 01/11/25 14:00 01/11/25 16:05 01/11/25 20:00 Temperature 97.9 F Pulse Rate 82 77 Respiratory Rate 20 Blood Pressure 105/53 L Pulse Oximetry 96 Oxygen Delivery Room Air 01/11/25 20:00 01/11/25 22:00 01/12/25 00:00 Temperature 98.1 F Pulse Rate 84 114 H 86 Respiratory Rate 20 Blood Pressure 146/97 H Pulse Oximetry 99 Oxygen Delivery 01/12/25 04:00 01/12/25 06:00 01/12/25 07:40 Temperature 98.5 F Pulse Rate 84 81 85 Respiratory Rate 16 18 Blood Pressure 113/53 L Pulse Oximetry 94 Oxygen Delivery Intake/Output Intake/Output: Intake & Output 01/09/25 01/10/25 01/11/25 01/12/25 23:59 23:59 23:59 23:59 Intake Total 2220 920 2120 440 Output Total 1050 1950 525 Balance 2220 -130 170 -85 Meds/Results Medications: Active Medications Generic Name Dose Route Start Last Admin Trade Name Freq PRN Reason Stop Dose Admin Acetaminophen 650 mg 01/09/25 14:53 01/10/25 20:04 Acetaminophen 325 Mg Tablet PO 650 mg Q4H PRN Administration Mild Pain (1-3) or Fever Albuterol/Ipratropium 3 ml 01/09/25 19:41 Ipratropium 0.5 Mg/Albuterol Sulfate 2.5 Mg (Base) Ampul.Neb 3 Ml INHALATION Q6HRT PRN Shortness Of Breath Or Wheezing Levothyroxine Sodium 100 mcg 01/10/25 06:30 01/12/25 06:31 Levothyroxine Sodium 100 Mcg Tablet PO 100 mcg DAILY@0630 CINTIA Administration Ondansetron HCl 4 mg 01/09/25 14:53 01/12/25 06:32 Ondansetron Inj 4 Mg/2 Ml Vial IV PUSH 4 mg Q4H PRN Administration Nausea Pantoprazole Sodium 40 mg 01/10/25 09:00 01/12/25 09:15 Pantoprazole 40 Mg Tablet PO 40 mg QAM CINTIA Administration Fluticasone/Salmeterol 2 puff 01/09/25 20:00 01/12/25 07:45 Fluticasone/Salmeterol 115-21 Mcg Inhaler 1 Puff INHALATION 2 puff Q12HRT CINTIA Administration Radiology Results: ITS Impressions Chest/Abdomen/Pelvis CT 01/09/25 12:53 IMPRESSION: 1. Severe right hydroureteronephrosis extending to a transition point in the mid right ureter without evident obstructing stone which raises some concern for urothelial carcinoma. Wall thickening along the dome of the fluid distended bladder more likely due to partially decompressed state although differential would also include urothelial carcinoma or sequela of acute or chronic cystitis. Correlate with urinalysis and consider CT urogram for further evaluation. 2. Mild right hydronephrosis with gradual tapering of the proximal left ureter without discrete obstructing stone or mass. 3. Multiple scattered small sclerotic bone lesions throughout the spine and pelvis which raises suspicion for metastatic disease. Consider bone scan for further evaluation 4. Asymmetric left-sided predominant soft tissue densities at the breast. Correlate with mammography. 5. Nonspecific mild mesenteric edema in the abdomen and pelvis and small amount of scattered ascites. 6. Prominent diverticulosis. 7. Small sliding-type hiatal hernia. 8. Mild mediastinal and upper abdominal lymphadenopathy. 9. Small pericardial effusion. Chest X-Ray 01/09/25 12:59 Impression: No acute cardiopulmonary abnormality. Retrograde Pyelogram 01/10/25 16:00 IMPRESSION: 1. Severe right-sided and moderate left-sided hydronephrosis likely secondary to long strictures with smooth mucosal margins at the bilateral mid ureters. No evident urothelial irregularities to elevate suspicion for malignancy. 2. Placement of bilateral internal ureteral stents in expected position. See procedure note for further detail. Labs Labs: Laboratory Results - last 24 hr 01/11/25 01/12/25 05:56 06:00 WBC 4.5 RBC 3.32 L Hgb 10.3 L Hct 31.0 L MCV 93.4 MCH 31.0 MCHC 33.2 RDW 13.9 Plt Count 116 L MPV 9.2 Immature Gran % (Auto) 0.9 H Neut % (Auto) 65.2 Lymph % (Auto) 24.3 Williamson % (Auto) 6.2 Eos % (Auto) 2.7 Baso % (Auto) 0.7 Lymph # (Auto) 1.10 Williamson # (Auto) 0.3 Eos # (Auto) 0.1 Baso # (Auto) 0.0 Abs Immat Gran (auto) 0.04 H Absolute Neuts (auto) 3.0 Absolute Nucleated RBC 0.000 Nucleated RBC % 0.0 % Immature Plt Fraction 1.6 Sodium 138 Potassium 3.0 L Chloride 108 H Carbon Dioxide 21 L Anion Gap 9 BUN 15 Creatinine 1.59 H Estim Creat Clear Calc 31 Estimated GFR 32 L Glucose 94 Calcium 8.1 L Total Bilirubin 0.6 AST 39 H ALT 20 Alkaline Phosphatase 109 Total Protein 6.0 L Albumin 3.0 L CA 15-3 Antigen 71.8 H
--- NOTE | 2025-01-12 13:57 | PM.DS ---
DS: Admitting Diagnosis Discharge Date January 12, 2025 Admitting Diagnosis Intractable nausea vomiting DS: Discharge Diagnosis Discharge Diagnosis (1) Bladder wall thickening: Code(s): N32.89 - Other specified disorders of bladder Status: Acute Assessment and Plan: Three-month history of unintended weight loss and nausea, vomiting, diarrhea. Concerns for malignancy with presenting symptoms. See CT abdomen pelvis results in HPI. -urology consult-> plan for bilateral ureteral stent placement and biopsy in OR on 01/10 -Jacobo catheter placed -oncology consulted 01/10: Pending onc consult, stent placement and biopsy today around 1400. 01/11: Uro recs today: Plan - Creatinine bumped up today at 1.92. - WBC is wnl - We discussed stents and what to expect with the stents including intermittent bloody urine and flank discomfort. - patient to be discharged with Jacobo catheter and should follow up in the office in the next 2 weeks with a renal ultrasound for re-evaluation of hydronephrosis. - Patient will have chronic stents until resolution of complicating issues. Stent exchange in [address] Regalado Onc recs 01/10 PM: This is a pleasant 69-year-old female came into the hospital nausea vomiting for the last 3 months duration. Patient informed me that she had this left breast mass for about for 5 years duration which is slowly getting bigger and harder. Her mammogram was done on December 28 showed bilateral breast asymmetry with architectural distortion. Additional ultrasound and spot compression was recommended. CT scan chest abdomen pelvis showed severe right hydroureteronephrosis with small sclerotic bone lesions throughout the spine and the pelvis as well as mild mediastinal and upper abdominal lymphadenopathy. Cystoscopy finding also noted. These findings are worrisome for metastatic breast cancer. I will check CA 15-3. We will consult Dr. Ren for breast biopsy. I plan to perform PET scan as an outpatient. I have answered all the questions the patient and the family satisfaction. -Person who performs breast biopsy not available to perform, biopsy will need to be outpt. 01/12: Creatinine 1.59 (2) Nausea & vomiting: Qualifiers: Vomiting type: unspecified Qualified Code(s): R11.2 - Nausea with vomiting, unspecified Code(s): R11.2 - Nausea with vomiting, unspecified Status: Acute Assessment and Plan: Three month history of nausea and vomiting. Patient has upcoming appointment on 02/04 with Gastroenterology for her N/V/D. Family request GI consult while inpatient. Prominent diverticulosis and a small hiatal hernia noted on CT. No definitive etiology of ongoing GI symptoms, but likely likely related to new found carcinoma. -GI consult -symptom management with Zofran p.r.n. -patient will be NPO at midnight for OR. Can further investigate and trial p.o. intake after procedure 01/10: Denies today, will evaluate after procedure. Zofran PRN. 01/11: Nauseous today, PRN Zofran. GI with recs to continue antiemetics, to continue to see pt. Wanting pt to be able to hold down food before discharge. Pt requesting chocolate ensure shakes today, ordered. 1018: Patient and spouse with to go home today (3) Acute kidney injury: Code(s): N17.9 - Acute kidney failure, unspecified Status: Acute Assessment and Plan: ROMARIO noted in PCP office. CT read severe right hydroureteronephrosis extending to a transition point in the mid right ureter without evident obstructing stone which raises some concern for urothelial carcinoma. Wall thickening along the dome of the fluid distended bladder more likely due to partially decompressed state although differential would also include urothelial carcinoma or sequela of acute or chronic cystitis. Correlate with urinalysis and consider CT urogram for further evaluation. Mild right hydronephrosis with gradual tapering of the proximal left ureter without discrete obstructing stone or mass -urology and oncology following -creatinine initially 1.9 in ED--> improved to 1.66 after 2 L LR bolus -continue to trend renal function 01/10: Creatinine continues to decrease, now 1.50, will continue to follow 01/11: Creatinine 1.92 today, will encourage fluids. Procedure yesterday may have impacted. 01/12: 1.59 (4) Hypokalemia due to excessive gastrointestinal loss of potassium: Code(s): E87.6 - Hypokalemia Status: Acute Assessment and Plan: Potassium 2.8 on arrival to ED. Likely from GI loss. -replaced with potassium chloride 20 mEq IV and 40 mEq p.o. -trend potassium and replace as needed -control nausea to minimize loss 01/10: -K continues to be low at 3.3, will replete via IV again today due to NPO status. Continue with AM labs. 01/11: -K continues to be low at 3.1, will replete via IV today due to not being able to tolerate PO in ED per pt. 01/12: 3.0, PO KCL 20 mEq x 1 (5) Hypothyroidism, unspecified: Qualifiers: Hypothyroidism type: unspecified Qualified Code(s): E03.9 - Hypothyroidism, unspecified Code(s): E03.9 - Hypothyroidism, unspecified Status: Acute Assessment and Plan: Patient has been unable to take her levothyroxine for about 5 days due to her GI symptoms. TSH resulted 7.1 with labs ordered by PCP. -TSH reflex ordered -will start patient on IVP levothyroxine at 50% home dose -resume home dose once tolerating p.o. and after NPO status 01/10: -TSH 8.400, T3 0.65, T4 WDL -Continue with levothyroxine IVP until not NPO and can tolerate PO home dose 01/11: -Resume PO home dose Synthroid today, IV dose d/c DS: Summary Hospital Course Hospital Course: 69-year-old female with 3 month history of persistent nausea vomiting. Worsened was becoming weak so came to emergency department. CT chest abdomen pelvis revealed widespread metastatic disease as noted below. She also at severe right hydronephrosis and acute kidney injury with creatinine 1.9. Albumin was 3.2. Potassium was 2.8. She responded well to IV fluids and potassium supplementation. She underwent stenting of the ureters on 01/10. She tolerated this well. Jacobo catheter was in place and draining well. This was discontinued prior to discharge. She did have a breast mass on prior mammogram that required follow-up this was to be done as an outpatient. Oncology was consulted as well planned outpatient PET scan and breast biopsy as the next steps in her evaluation. By day of discharge she was able to tolerate liquids adequately but still unable to tolerate solid food. She was up and about the room independently. She and her felt comfortable with her going home. She denied any pain. CT Chest, Abdomen, Pelvis: IMPRESSION: 1. Severe right hydroureteronephrosis extending to a transition point in the mid right ureter without evident obstructing stone which raises some concern for urothelial carcinoma. Wall thickening along the dome of the fluid distended bladder more likely due to partially decompressed state although differential would also include urothelial carcinoma or sequela of acute or chronic cystitis. Correlate with urinalysis and consider CT urogram for further evaluation. 2. Mild right hydronephrosis with gradual tapering of the proximal left ureter without discrete obstructing stone or mass. 3. Multiple scattered small sclerotic bone lesions throughout the spine and pelvis which raises suspicion for metastatic disease. Consider bone scan for further evaluation 4. Asymmetric left-sided predominant soft tissue densities at the breast. Correlate with mammography. 5. Nonspecific mild mesenteric edema in the abdomen and pelvis and small amount of scattered ascites. 6. Prominent diverticulosis. 7. Small sliding-type hiatal hernia. 8. Mild mediastinal and upper abdominal lymphadenopathy. 9. Small pericardial effusion. Time Spent with Patient Time attestation: Total time spent providing and/or coordinating discharge services: Exam Narrative: HEENT: PERRL, sclerae nonicteric, pharyngeal mucosa pink and intact NECK: No JVD CHEST: Clear to auscultation. Normal effort HEART: NL S1/S2, regular, no murmur ABDOMEN: BS+, soft, nontender, no mass, no bruits EXTREMITIES: No cyanosis, edema, or clubbing NEUROLOGIC: CN intact and symmetric to inspection MUSCULOSKELETAL: Tone and strength symmetric PSYCH: Alert. Oriented to person, place, and time DS: Data Data Completed and Pending Pending studies at discharge: Pending at discharge 01/10/25 14:47 Surgical [PTH] Routine Surgical [PTH] Routine Surgical [PTH] Routine Labs on day of discharge: Labs from last 24 hours 01/12/25 01/11/25 06:00 05:56 WBC 4.5 RBC 3.32 L Hgb 10.3 L Hct 31.0 L MCV 93.4 MCH 31.0 MCHC 33.2 RDW 13.9 Plt Count 116 L MPV 9.2 Immature Gran % (Auto) 0.9 H Neut % (Auto) 65.2 Lymph % (Auto) 24.3 Wilson % (Auto) 6.2 Eos % (Auto) 2.7 Baso % (Auto) 0.7 Lymph # (Auto) 1.10 Wilson # (Auto) 0.3 Eos # (Auto) 0.1 Baso # (Auto) 0.0 Abs Immat Gran (auto) 0.04 H Absolute Neuts (auto) 3.0 Absolute Nucleated RBC 0.000 Nucleated RBC % 0.0 % Immature Plt Fraction 1.6 Sodium 138 Potassium 3.0 L Chloride 108 H Carbon Dioxide 21 L Anion Gap 9 BUN 15 Creatinine 1.59 H Estim Creat Clear Calc 31 Estimated GFR 32 L Glucose 94 Calcium 8.1 L Total Bilirubin 0.6 AST 39 H ALT 20 Alkaline Phosphatase 109 Total Protein 6.0 L Albumin 3.0 L CA 15-3 Antigen 71.8 H Discharge Plan Discharge Consulting providers: Yvrose Fernandez; Anny Rendon; Miroslava Rodrigues; Shant Montanez Discharging Clinician: Azeem Valdez Patient Disposition: Home Activity: no straining and no driving Diet: as tolerated Discharge Instructions: 1. Follow up with the Urology team in the office in the next 2 weeks for renal ultrasound and re-evaluation of your kidneys. You will be discharged with your Jacobo (urinary) catheter. 2. Continue to check your blood pressure and blood sugar at home if applicable. Keep your scheduled appts with your primary care provider and any specialist that you may see. Return to the emergency department if you develop sudden shortness of breath, chest pain, a fever of greater than 101.5, or nausea, vomiting, abd pain, or diarrhea that does not go away. Follow-up with your primary care provider within 1-2 weeks, they will want to be updated on your inpatient stay in the hospital. Thank you for [facility] for your healthcare needs. Patient Instructions: Antibiotic Form Patient Language: Bulgarian Stand Alone Forms: General Discharge Information Follow-up/Referrals: Shant Montanez MD [Physician, Hematology] - Call for Appointment Anny Rendon MD [Physician, Urology] - Call for Appointment Ana Rosa Jones DO [Primary Care Provider, Family Practice] - 1 Week Discharge Medications: Continued ondansetron 4 mg tablet,disintegrating 4 mg PO Q6H PRN (Reason: nausea and vomiting) Qty: 30 0RF pantoprazole 40 mg tablet,delayed release (DR/EC) 40 mg PO QAM 42 Days Qty: 42 0RF albuterol sulfate 90 mcg/actuation HFA aerosol inhaler 2 inh inhalation Q4H PRN (Reason: shortness of breath or wheezing) Qty: 8.5 8RF budesonide-formoterol [Symbicort] 160-4.5 mcg/actuation HFA aerosol inhaler 2 puff inhalation BID Qty: 10.2 5RF levothyroxine 100 mcg tablet 100 mcg PO DAILY Qty: 90 3RF Discontinued diclofenac sodium 75 mg tablet,delayed release (DR/EC) 75 mg PO DAILY Date of admission: 01/09/25 14:53 Primary Care Provider: Ana Rosa Jones Admitting Provider: Brandyn Todd Attending physician on admission: Brandyn Todd Condition: Guarded Prognosis
[2025-01-12 14:51] VITALS: BP 107/48; PULSE 85; RESP 16; TEMP 36.6; O2SAT 95
== END 2025-01-12 13:58 | disposition home or self-care (01) | DRG 659 ==
LOC: ANHED 14:47 → ANH3MED 15:47
PROVIDERS: Internal Medicine Hematology & Oncology; Nurse Practitioner Adult Health; Urology; Admitting Provider Family Medicine; Emergency Provider Student in an Organized Health Care Education/Training Program; PCP Family Medicine; Visit Provider Internal Medicine
PROC: 0T788DZ Dilation of Bilateral Ureters with Intraluminal Device, Via Natural or Artificial Opening Endoscopic (ICD-10-PCS; CPT 52352; principal; 2025-01-10 15:30)
DX: N13.1 Hydronephrosis with ureteral stricture, not elsewhere classified (principal); K68.2 Retroperitoneal fibrosis; T83.510A Infection and inflammatory reaction due to cystostomy catheter, initial encounter; E44.0 Moderate protein-calorie malnutrition; Z68.41 Body mass index [BMI] 40.0-44.9, adult; I31.39 Other pericardial effusion (noninflammatory); C79.51 Secondary malignant neoplasm of bone; C80.1 Malignant (primary) neoplasm, unspecified; N17.9 Acute kidney failure, unspecified; N32.89 Other specified disorders of bladder; N63.20 Unspecified lump in the left breast, unspecified quadrant; N30.91 Cystitis, unspecified with hematuria; J44.9 Chronic obstructive pulmonary disease, unspecified; E87.6 Hypokalemia; E86.0 Dehydration; E03.9 Hypothyroidism, unspecified; K57.90 Diverticulosis of intestine, part unspecified, without perforation or abscess without bleeding; K44.9 Diaphragmatic hernia without obstruction or gangrene; R63.4 Abnormal weight loss; R11.2 Nausea with vomiting, unspecified; R19.7 Diarrhea, unspecified; R92.8 Other abnormal and inconclusive findings on diagnostic imaging of breast; M17.0 Bilateral primary osteoarthritis of knee; F10.90 Alcohol use, unspecified, uncomplicated; Z87.891 Personal history of nicotine dependence
CPT/HCPCS: 36415; 71046; 71250; 74176; 74420; 80053; 81001; 83735; 84439; 84443; 84480; 85025; 85055; 86300; 87086; 88108; 88305; 93005; 94640; 96361; 96365; 96366; 96375; 99285; J0690; A9270; C1758; C1769; C2617; J0650; J1200; J2003; J2405; J2704; J2765; J3010; J3480; J7040; J7120; Q9966

== ENCOUNTER 2025-01-16 08:50 | Outpatient (CLI) | payer MEDICARE, SELFPAY ==
--- NOTE | ~2025-01-16 | MM_ITS ---
EXAMINATION: MM diagnostic valentín BI w suresh INDICATION: 69-year old female; Presents for evaluation of abnormal screening mammographic findings bilaterally. COMPARISON: 12/28/2024 TECHNIQUE: Digital breast tomosynthesis ML and spot compression CC and MLO views of Both breasts were obtained with computer-aided detection to assist in interpretation of the study. FINDINGS: The breasts are heterogeneously dense, which may obscure small masses. A spiculated mass persists in the central retroareolar left breast which extends anteriorly to involve the base of the nipple with nipple retraction and thickening of the periareolar skin. This finding correlates to the area of concern on the screening mammogram and CT scan dated 01/09/2025. In addition, there is an enlarged lymph node with abnormal configuration seen in the superior lateral left breast which is concerning for metastatic disease. Focal asymmetry with associated architectural distortion persists in the superior central right breast at middle depth which correlates to the screening mammogram finding. There is a group of heterogeneous coarse calcifications in a linear distribution that is seen in the superior lateral right breast. IMPRESSION: 1. Incomplete evaluation of persistent spiculated mass in the central retroareolar left breast and abnormally enlarged lymph node in the upper outer/axilla left breast. Further evaluation with ultrasound is advised. 2. Incomplete evaluation of persistent right breast focal asymmetry in the superior central location. Further evaluation with ultrasound is advised. 3. Suspicious right breast heterogeneous coarse calcification in linear distribution. Biopsy is recommended. RECOMMENDATIONS: Stereotactic core needle biopsy of right breast calcifications. Bilateral breast ultrasound BI-RADS Category 0: Incomplete: Needs additional imaging evaluation. Reviewed, dictated and finalized at location B. IMPRESSION: 1. Incomplete evaluation of persistent spiculated mass in the central retroare olar left breast and abnormally enlarged lymph node in the upper outer/axilla l eft breast. Further evaluation with ultrasound is advised. 2. Incomplete evaluation of persistent right breast focal asymmetry in the sup erior central location. Further evaluation with ultrasound is advised. 3. Suspicious right breast heterogeneous coarse calcification in linear distri bution. Biopsy is recommended. RECOMMENDATIONS: Stereotactic core needle biopsy of right breast calcifications. Bilateral breast ultrasound BI-RADS Category 0: Incomplete: Needs additional imaging evaluation.
--- OUTSIDE RECORDS SUMMARY | 2025-01-16 09:30 | XMS_ITS | Clinical Summary ---
Author Organization [employer] [facility] Address [address] Ordoñez: Epic Prelude ADT [place]ASHAWN CAMEJO [id number] Care Team Providers Care [employer] Name Role Phone Unavailable Primary Care Provider Unavailabl e Social History Tobacco Use Types Packs/Day Years Used Date Smoking Tobacco: Never Assessed Comments Unknown Sex and Gender Information Value Date Recorded Sex Assigned at Not on file Legal Sex Female 5:19 PM [employer] Gender Identity Not on file Sexual Orientation [...]
== END 2025-01-16 08:51 | disposition home or self-care (01) ==
PROVIDERS: PCP Family Medicine; Visit Provider Surgery
DX: R92.8 Other abnormal and inconclusive findings on diagnostic imaging of breast (principal); N63.42 Unspecified lump in left breast, subareolar; N64.53 Retraction of nipple
CPT/HCPCS: 77062; 77066; G0279

== ENCOUNTER 2025-01-16 10:06 | Emergency (ER) | payer MEDICARE, SELFPAY ==
--- NOTE | ~2025-01-16 | CT_ITS ---
EXAMINATION: CTA chest PE protocol DATE: 01/16/2025 12:29 INDICATION: Syncope. Metastatic cancer. TECHNIQUE: Computed tomography (CT) pulmonary angiogram of the chest was performed with 100 mL Omnipaque-350 intravenous contrast. Additional 3D reconstructions utilizing coronal maximum intensity projection (MIP) were performed. Automated exposure control and iterative reconstruction technique were employed. The dose-length product was 574.12 mGy-cm. COMPARISON: None FINDINGS: There are central pulmonary arterial filling defects in the right lower lobar pulmonary artery extending to the superior segmental and the anterior, lateral and posterior basilar segmental pulmonary arteries. Additional pulmonary emboli in the inferior lingular pulmonary artery. Small posterior layering left pleural effusion with dependent and basilar compressive atelectasis in the left lower lobe. No pneumonia, pulmonary edema or right-sided pleural effusion. Mild cardiomegaly. No leftward deviation of the ventricular septum to suggest right heart strain. Atherosclerotic coronary artery calcific location. Thoracic aorta is normal in caliber with no dissection. No pathologically enlarged thoracic l ymphadenopathy. Mesenteric edema in the upper abdomen along with small amount of perihepatic ascites. Calcified gallstone in the decompressed gallbladder. Severe cervical and moderate thoracic spondylosis. There are multiple scattered sclerotic bone lesions raising suspicion for osseous metastatic disease. Old healed lateral right ninth rib fracture. IMPRESSION: 1. Pulmonary emboli in the lingula and right lower lobe with moderate clot burden both without evident right heart strain. 2. Mesenteric edema in the upper abdomen with small amount of perihepatic ascites. 3. Multiple scattered small cirrhotic bone lesions suspicious for metastatic disease. Reviewed, dictated and finalized at location A. IMPRESSION: 1. Pulmonary emboli in the lingula and right lower lobe with moderate clot aung en both without evident right heart strain. 2. Mesenteric edema in the upper abdomen with small amount of perihepatic ascit es. 3. Multiple scattered small cirrhotic bone lesions suspicious for metastatic di sease.
--- NOTE | ~2025-01-16 | XR_ITS ---
EXAMINATION: XR chest 2V, 01/16/2025 10:50 CDT HISTORY: syncope COMPARISON: No comparisons available. Technique: 2 views obtained. Findings: Moderate left basilar infiltrate and effusion. No pneumothorax. Heart is normal size. Mediastinal and hilar contours are within normal limits. Bony thorax no acute abnormality. Impression: Left lower lobe pneumonia Reviewed, dictated and finalized at location P. Impression: Left lower lobe pneumonia
[2025-01-16 10:07] VITALS: BP 87/46; PULSE 69; RESP 14; TEMP 36.5; O2SAT 96
[2025-01-16 10:11] VITALS: PULSE 72
--- NOTE | 2025-01-16 10:11 | ECG_ITS ---
Test Date: 2025-01-16 10:13:30 Measurements Intervals [place] Rate: 68 P: 44 NM: 154 QRS: 43 QRSD: 90 T: 16 QT: 404 QTc: 433 Interpretive Statements SINUS RHYTHM BASELINE ARTIFACT- I, III, AVR, AVL, AVF NORMAL ECG Compared to ECG 01/09/2025 12:24:48 No significant changes Electronically Signed On 01-16-2025 10:34:00 CDT by Esteban Whitman D.O.
[2025-01-16 11:14] LABS: Hematocrit 31.3 % (37.0-47.0); Hemoglobin 10.3 g/dL (12.0-15.0); Immature Granulocyte Percent A 1.0 % (0-0.5); Lymphocytes Absolute Auto 1.13 K/mm3 (0.9-3.2); Mean Corpuscular HGB Conc 32.9 g/dl (32-36); Mean Corpuscular Hemoglobin 30.9 pg (26-34); Mean Corpuscular Volume 94.0 fl (80-100); Nucleated Red Blood Cells Absolute Auto 0.030 K/mm3 (0.0-0.012); Nucleated Red Blood Cells Perc 0.6 % (0.0-0.2); Platelet Count Result 124 k/mm3 (150-375); Red Blood Count 3.33 M/mm3 (4.2-5.4); White Blood Count 5.0 K/mm3 (4.5-10.0)
[2025-01-16 11:28] LABS: Alanine Aminotransferase 21 U/L (6-35); Albumin Level 3.4 g/dL (3.5-5.1); Alkaline Phosphatase 116 U/L (38-126); Anion Gap 11 mmol/L (4-12); Aspartate Amino Transferase 50 U/L (14-36); Bilirubin,Total 1.2 mg/dL (0.2-1.3); Blood Urea Nitrogen 17 mg/dL (7-17); Calcium 8.4 mg/dL (8.4-10.2); Carbon Dioxide 22 mmol/L (22-30); Chloride 104 mmol/L (98-107); Estimated CRCL calculation 30 ml/min; Estimated Glomerular Filt Rate 31; Glucose 109 mg/dL (65-110); Potassium 3.2 mmol/L (3.4-5.0); Sodium 137 mmol/L (137-145); Total Protein 6.5 g/dL (6.3-8.2)
[2025-01-16 11:40] LABS: Troponin I < 0.012 ng/mL (0.000-0.034)
[2025-01-16] MEDS: LACTATED RINGERS 1,000 ML 999 ML IV CONT (12:10)
[2025-01-16 12:12] VITALS: BP 112/62; PULSE 75; RESP 14; O2SAT 100
[2025-01-16 13:43] VITALS: BP 123/69; PULSE 76; RESP 17; O2SAT 97
[2025-01-16 14:55] VITALS: BP 134/70; PULSE 78; RESP 20; O2SAT 97
--- NOTE | 2025-01-16 14:58 | ED.GENADULT ---
HPI - General Adult General Chief complaint: Syncope Stated complaint: syncope Time Seen by Provider: 01/16/25 11:42 History of Present Illness HPI narrative: This is a 69-year-old female currently undergoing workup for metastatic breast cancer presenting for presyncopal event while getting her mammogram. Patient has been having nausea vomiting for last 3 months. She has had weight loss. This prompted her to go to ER where she was noted to have signs concerning for metastatic disease. She is currently seen Urology breast specialist and undergoing workup. While she was undergoing a mammogram earlier today she started to feel lightheaded and faint. Per the staff at the mammogram center her blood pressure dropped 50/40. She was then sent to the ER for evaluation. By time she arrived here she feels tired which she says has been ongoing for several weeks. She is denying any fevers chills chest pain difficulty breathing or abdominal pain. She still has her persistent nausea and vomiting which is only mildly improved with Zofran. Denies any swelling of her lower extremities. Related Data Allergies Allergy/AdvReac Type Severity Reaction Status Date / Time codeine AdvReac Unknown Nausea and Verified 01/16/25 08:07 Vomiting [facility] Past Medical History Medical History (Updated 01/16/25 @ 15:04 by Shravan Grewal MD) Metastatic carcinoma to bone Body mass index (BMI) of 40.1 to 44.9 in adult COPD (chronic obstructive pulmonary disease) Hypothyroidism, unspecified Bilateral primary osteoarthritis of knee Surgical History Surgical History Hx of section x 2 Hx of hysterectomy Family History Family History Mother Uterine cancer Father Throat cancer Sibling No problems noted. Social History Social History (Updated 01/16/25 @ 08:08 by Linda Everett CMA) Smoking packs per day: 1 Smoking cigarettes per day: 20.0 Years smoked: 20 Smoking pack-years: 20.00 Smoking status: Former smoker Tobacco type: cigarettes Second hand tobacco smoke exposure: No Alcohol intake: never Drinks per week: 7 Alcohol use details: Wine Substance use: never Substance use type: does not use Other substance usage details: Before october Do You Feel Safe in your Home?: Yes Lack of Transportation: No Lack of Food: Never True Current Housing: I Have Housing Concerned About Future Housing: No Difficulty Paying Gas/Electric Bills: No Difficulty Paying for Meds: No Currently Unemployed: No Education: High School Diploma/GED Difficulty w/ Childcare or Family Care: No Living arrangements: with family Occupation/Education: retired 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 Head: atraumatic. EYES: EOMI, NOSE: Atraumatic NECK: Trachea midline RESPIRATORY: No increased rate of breathing clear to auscultation CARDIOVASCULAR: RRR, no peripheral edema ABDOMINAL: Non-distended soft nontender MUSCULOSKELETAl: No obvious deformities NEURO: Alert. Moving 4/4 extremities SKIN:: Warm, dry. Normal color PSYCHIATRIC: Normal affect Course Vital Signs Vital signs: Vital Signs Temperature 97.7 F 01/16/25 10:07 Pulse Rate 69 01/16/25 10:07 Respiratory Rate 14 01/16/25 10:07 Blood Pressure 87/46 L 01/16/25 10:07 Pulse Oximetry 96 01/16/25 10:07 Oxygen Delivery Room Air 01/16/25 10:07 Temperature 97.7 F 01/16/25 10:07 Pulse Rate 78 01/16/25 14:55 Respiratory Rate 20 01/16/25 14:55 Blood Pressure 134/70 01/16/25 14:55 Pulse Oximetry 97 01/16/25 14:55 Oxygen Delivery Room Air 01/16/25 10:07 Medical Decision Making [facility] Narrative Medical decision making narrative: -Course: 69-year-old female presenting with an episode of presyncope low blood pressures while undergoing mammogram. Symptoms have since resolved. She is currently asymptomatic. CTA ordered to evaluate for pulmonary embolism given her metastatic disease. CTA showed right-sided pulmonary embolisms without right heart strain. Patient was informed of the results. Her heart rate is 80 in her blood pressure is 127/70. She is not requiring supplemental oxygen. She does not have any chest pain or difficulty breathing. . She is adamantly opposed to being admitted to the hospital. She was able to ambulate in the ED without desaturating although she did become slightly winded although she says that is normal for her. Admission versus discharge and the risks benefits of both were discussed with the patient at length. Patient has been given Eliquis. She will be given antiemetics. She will be instructed to follow-up with her assorted specialists. Given return precautions for chest pain difficulty breathing or any new or worsening symptoms. -DDX includes but is not limited to: PE, dehydration, nausea vomiting a malignancy, sepsis, dehydration -Co-morbidities complicating care: Metastatic disease Vital Signs Vital Signs: Vital Signs Temperature 97.7 F 01/16/25 10:07 Pulse Rate 69 01/16/25 10:07 Respiratory Rate 14 01/16/25 10:07 Blood Pressure 87/46 L 01/16/25 10:07 Pulse Oximetry 96 01/16/25 10:07 Oxygen Delivery Room Air 01/16/25 10:07 Temperature 97.7 F 01/16/25 10:07 Pulse Rate 78 01/16/25 14:55 Respiratory Rate 20 01/16/25 14:55 Blood Pressure 134/70 01/16/25 14:55 Pulse Oximetry 97 01/16/25 14:55 Oxygen Delivery Room Air 01/16/25 10:07 Lab Data 01/16/25 11:08 01/16/25 11:08 Labs: Lab Results 01/16/25 Range/Units 11:08 WBC 5.0 (4.5-10.0) K/mm3 RBC 3.33 L (4.2-5.4) M/mm3 Hgb 10.3 L (12.0-15.0) g/dL Hct 31.3 L (37.0-47.0) % MCV 94.0 (80-100) fl MCH 30.9 (26-34) pg MCHC 32.9 (32-36) g/dl RDW 14.5 (11.5-14.5) % Plt Count 124 L (150-375) k/mm3 MPV 9.8 (7.4-10.4) fl Immature Gran % (Auto) 1.0 H (0-0.5) % Neut % (Auto) 65.3 (45.5-73.1) % Lymph % (Auto) 22.5 (18.3-44.2) % [place] % (Auto) 7.4 (2.6-8.5) % Eos % (Auto) 2.8 (0-4.4) % Baso % (Auto) 1.0 (0.2-1.2) % Lymph # (Auto) 1.13 (0.9-3.2) K/mm3 [place] # (Auto) 0.4 (0.1-0.6) K/mm3 Eos # (Auto) 0.1 (0-0.3) K/mm3 Baso # (Auto) 0.1 (0.0-0.1) K/mm3 Abs Immat Gran (auto) 0.05 H (0.00-0.031) K/mm3 Absolute Neuts (auto) 3.3 (1.3-6.7) K/mm3 Absolute Nucleated RBC 0.030 H (0.0-0.012) K/mm3 Nucleated RBC % 0.6 H (0.0-0.2) % Sodium 137 (137-145) mmol/L Potassium 3.2 L (3.4-5.0) mmol/L Chloride 104 (98-107) mmol/L Carbon Dioxide 22 (22-30) mmol/L Anion Gap 11 (4-12) mmol/L BUN 17 (7-17) mg/dL Creatinine 1.66 H (0.7-1.0) mg/dL Estim Creat Clear Calc 30 ml/min Estimated GFR 31 L (59 - ) Glucose 109 (65-110) mg/dL Calcium 8.4 (8.4-10.2) mg/dL Total Bilirubin 1.2 (0.2-1.3) mg/dL AST 50 H (14-36) U/L ALT 21 (6-35) U/L Alkaline Phosphatase 116 (38-126) U/L Troponin I < 0.012 (0.000-0.034) ng/mL Total Protein 6.5 (6.3-8.2) g/dL Albumin 3.4 L (3.5-5.1) g/dL Discharge Plan Discharge Clinical Impression: Pulmonary embolism, Pre-syncope, Metastatic disease Patient Disposition: Home Condition: Guarded Prognosis Instructions: Antibiotic Form, Apixaban (By mouth), Pulmonary Embolism (ED) Additional Instructions: You were seen in the emergency department after a pre-syncopal event. Your found to have pulmonary embolism on the right side. Please take the Eliquis as instructed. You did not want to be admitted to the hospital, but if you feel that you are getting worse and developed chest pain or shortness of breath or any new symptoms please return to ED immediately for re-evaluation. Please follow-up with your urologist, oncologist and breast specialist for further management. Patient Language: Kinyarwanda Prescriptions: New Eliquis DVT-PE Treat 30D Start 5 mg (74 tabs) tablets,dose pack See Rx Instructions .ROUTE .COMPLEX Qty: 74 0RF Rx Instructions: orally per package directions metoclopramide HCl [Reglan] 10 mg tablet 10 mg PO Q6H PRN (Reason: nausea and vomiting) Qty: 30 0RF No Action ondansetron 4 mg tablet,disintegrating 4 mg PO Q6H PRN (Reason: nausea and vomiting) Qty: 30 0RF pantoprazole 40 mg tablet,delayed release (DR/EC) 40 mg PO QAM 42 Days Qty: 42 0RF albuterol sulfate 90 mcg/actuation HFA aerosol inhaler 2 inh inhalation Q4H PRN (Reason: shortness of breath or wheezing) Qty: 8.5 8RF budesonide-formoterol [Symbicort] 160-4.5 mcg/actuation HFA aerosol inhaler 2 puff inhalation BID Qty: 10.2 5RF levothyroxine 100 mcg tablet 100 mcg PO DAILY Qty: 90 3RF Follow-up/Referrals: Ana Rosa Jones DO [Primary Care Provider, Family Practice] - 3 Days Referral Note: PE. declined admission to hospital.
[2025-01-16] MEDS: APIXABAN 5 MG TABLET 10 MG PO (15:07)
--- OUTSIDE RECORDS SUMMARY | 2025-01-16 15:23 | XMS_ITS | Clinical Summary ---
Author Organization [facility] [facility] Address [address] 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
== END 2025-01-16 15:27 | disposition home or self-care (01) ==
PROVIDERS: Physician Assistant; Emergency Provider Emergency Medicine; PCP Family Medicine
DX: I26.99 Other pulmonary embolism without acute cor pulmonale (principal); R55 Syncope and collapse; C50.919 Malignant neoplasm of unspecified site of unspecified female breast; C79.51 Secondary malignant neoplasm of bone; J44.9 Chronic obstructive pulmonary disease, unspecified; E03.9 Hypothyroidism, unspecified; Z87.891 Personal history of nicotine dependence
CPT/HCPCS: 36415; 71046; 71275; 80053; 84484; 85025; 93005; 96360; 99284; A9270; J7120; Q9967

== ENCOUNTER 2025-01-18 10:24 | Outpatient (CLI) | payer MEDICARE, SELFPAY ==
--- NOTE | ~2025-01-18 | US_ITS ---
EXAMINATION: US breast BI limited INDICATION: 69-year old female; BI-RADS 0, callback from diagnostic mammogram completed on 01/16/2025 that showed spiculated mass in the central retroareolar left breast, enlarged left breast lymph node in the upper outer/axilla, and persistent right breast focal asymmetry in the superior central location. COMPARISON: 01/16/2025 TECHNIQUE: Targeted ultrasound evaluation of the areas of concern bilaterally was completed. FINDINGS: Left breast: There is a large heterogeneous hypoechoic mass with irregular/spiculated margins centered in the central retroareolar left breast and extends from 12:00 to 6:00 and from 3:00 to 9:00 locations measuring 8.4 x 5.5 x 7 cm. This lesion extends anteriorly to involve the base of the left nipple which is retracted. The lesion demonstrates internal vascularity, and has posterior acoustic shadowing. This finding correlates to the mammographic finding. At 2:00, 9 cm from the nipple, is an abnormally enlarged lymph node with thick cortex which measure up to 0.7 cm in thickness. This enlarged lymph node correlates to a mammographic finding. Right breast: At 8:00, 3 cm FN, there is a 0.3 cm hypoechoic mass. At 9:00, 4.5 cm from the nipple there is an hypoechoic mass with echogenic center with maximum dimension of 1.1 cm. This finding has the appearance of an intramammary lymph node. At 11:00, 4 cm FN there is an hypoechoic mass that is taller than wide which measure 0.7 x 0.6 cm. This lesion is considered suspicious. Additional hypoechoic mass is seen at 11:00, 4 cm FN that measure 0.5 x 0.9 cm. IMPRESSION: 1. Highly suspicious LEFT breast heterogeneous mass centered at central retroareolar location with extension to and retraction of the left nipple, that correlates to mammography finding. Biopsy is recommended. 2. Prominent left intramammary/axillary lymph node is suspicious for metastasis. 3. Multiple indeterminate hypoechoic masses in the right breast. None of these lesions are good correlates to the mammographic finding. RECOMMENDATIONS: 1. Ultrasound-guided core needle biopsy of LEFT breast mass centered at central retroareolar location. 2. Ultrasound guided core needle biopsy of left intramammary/axillary prominent lymph node. 3. Ultrasound guided core needle biopsy of Right Breast hypoechoic lesion at 11:00, 4 cm from the nipple. 4. There is an existing recommendation for stereotactic core biopsy of right breast suspicious calcifications 5. Bilateral breast MRI is recommended to evaluate extent of disease and problem solve involvement of the Right breast given the disparity between the mammography and ultrasound findings. BI-RADS 5, HIGHLY SUSPICIOUS FOR MALIGNANCY Reviewed, dictated and finalized at location B. IMPRESSION: 1. Highly suspicious LEFT breast heterogeneous mass centered at central retroa reolar location with extension to and retraction of the left nipple, that corre lates to mammography finding. Biopsy is recommended. 2. Prominent left intramammary/axillary lymph node is suspicious for metastasi s. 3. Multiple indeterminate hypoechoic masses in the right breast. None of these lesions are good correlates to the mammographic finding. RECOMMENDATIONS: 1. Ultrasound-guided core needle biopsy of LEFT breast mass centered at central retroareolar location. 2. Ultrasound guided core needle biopsy of left intramammary/axillary prominent lymph node. 3. Ultrasound guided core needle biopsy of Right Breast hypoechoic lesion at 11 :00, 4 cm from the nipple. 4. There is an existing recommendation for stereotactic core biopsy of right br east suspicious calcifications 5. Bilateral breast MRI is recommended to evaluate extent of disease and proble m solve involvement of the Right breast given the disparity between the mammogr aphy and ultrasound findings. BI-RADS 5, HIGHLY SUSPICIOUS FOR MALIGNANCY
--- OUTSIDE RECORDS SUMMARY | 2025-01-18 10:45 | XMS_ITS | Clinical Summary ---
Author Organization [employer] [facility] Address [address] 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
== END 2025-01-18 10:25 | disposition home or self-care (01) ==
LOC: ANHFOHIMG 10:25
PROVIDERS: PCP Family Medicine; Visit Provider Surgery
DX: R92.8 Other abnormal and inconclusive findings on diagnostic imaging of breast (principal); N63.42 Unspecified lump in left breast, subareolar; N64.53 Retraction of nipple
CPT/HCPCS: 76642

== ENCOUNTER 2025-01-23 11:22 | Outpatient (CLI) | payer MEDICARE, SELFPAY ==
[2025-01-23 11:45] LABS: Hematocrit 33.0 % (37.0-47.0); Hemoglobin 10.8 g/dL (12.0-15.0); Immature Granulocyte Percent A 0.8 % (0-0.5); Lymphocytes Absolute Auto 1.56 K/mm3 (0.9-3.2); Mean Corpuscular HGB Conc 32.7 g/dl (32-36); Mean Corpuscular Hemoglobin 30.9 pg (26-34); Mean Corpuscular Volume 94.6 fl (80-100); Nucleated Red Blood Cells Absolute Auto 0.030 K/mm3 (0.0-0.012); Nucleated Red Blood Cells Perc 0.5 % (0.0-0.2); Platelet Count Result 119 k/mm3 (150-375); Red Blood Count 3.49 M/mm3 (4.2-5.4); White Blood Count 6.0 K/mm3 (4.5-10.0)
[2025-01-23 12:08] LABS: Alanine Aminotransferase 28 U/L (6-35); Albumin Level 3.7 g/dL (3.5-5.1); Alkaline Phosphatase 133 U/L (38-126); Anion Gap 10 mmol/L (4-12); Aspartate Amino Transferase 67 U/L (14-36); Bilirubin,Total 1.2 mg/dL (0.2-1.3); Blood Urea Nitrogen 22 mg/dL (7-17); Calcium 8.8 mg/dL (8.4-10.2); Carbon Dioxide 23 mmol/L (22-30); Chloride 101 mmol/L (98-107); Estimated Glomerular Filt Rate 44; Glucose 104 mg/dL (65-110); Potassium 3.4 mmol/L (3.4-5.0); Sodium 134 mmol/L (137-145); Total Protein 7.1 g/dL (6.3-8.2)
--- OUTSIDE RECORDS SUMMARY | 2025-01-23 13:00 | XMS_ITS | Clinical Summary ---
Author Organization [facility] [facility] Address [address] 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
== END 2025-01-23 11:23 | disposition home or self-care (01) ==
LOC: ANHLAB 11:23
PROVIDERS: PCP Family Medicine; Visit Provider Family Medicine
DX: E87.6 Hypokalemia (principal); N17.9 Acute kidney failure, unspecified; J44.9 Chronic obstructive pulmonary disease, unspecified
CPT/HCPCS: 36415; 80053; 85025

== ENCOUNTER 2025-01-25 07:10 | Outpatient (CLI) | payer MEDICARE, SELFPAY ==
--- NOTE | ~2025-01-25 | MMUS_ITS ---
US breast biopsy LT w image, MM post biopsy diagnostic LT EXAMINATION: US GUIDED NEEDLE BIOPSY WITH VACUUM ASSISTANCE DATE: 01/25/2025 09:16 CDT INDICATION: Left breast mass seen on recent examination. Ultrasound-guided core biopsy is requested to evaluate for malignancy. BREAST PARENCHYMAL COMPOSITION: Dense: The breasts are heterogeneously dense, which may obscure small masses TECHNIQUE AND FINDINGS: The risks and potential benefits of the procedure were discussed with the patient, and written informed consent was obtained. After sterile preparation of the left breast, 1% lidocaine was utilized for local anesthesia. 1% lidocaine with epinephrine was used for deep anesthesia. A 10G vacuum-assisted biopsy gun needle was advanced through to the outer edge of the region of interest from a lateral approach utilizing sonographic guidance. A total of three tissue core samples were obtained through the lesion. An Inrad tissue marker clip was then placed at the biopsy site. Hemos tasis was achieved. The patient tolerated procedure well and there was no evidence of immediate complication. The patient was given verbal instructions partly is from the department. Left breast mammograms to document tissue marker clip placement. The tissue samples were submitted to surgical pathology for histologic analysis. IMPRESSION: 1. Successful ultrasound-guided vacuum-assisted biopsy of left breast mass with post procedure mammogram for marker placement. Please refer to pathology report for histologic analysis. Reviewed, dictated and finalized at location C. IMPRESSION: 1. Successful ultrasound-guided vacuum-assisted biopsy of left breast mass wit h post procedure mammogram for marker placement. Please refer to pathology repo rt for histologic analysis.
--- OUTSIDE RECORDS SUMMARY | 2025-01-25 07:15 | XMS_ITS | Clinical Summary ---
Author Organization [facility] Address [address] 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
--- NOTE | 2025-01-25 09:07 | S_PTH ---
PATIENT: Marivel Johnson LOC: [facility] U#:[id number] AGE/SX: 69/F ROOM: RE01/25/[address]: Miroslava Rodrigues MD : [id number] BED: DIS: 01/25/2025 SPEC #: [id number] RECD: 01/25/25 11:25 STATUS: DIYA REClaire #: [id number] NO: 01/25/25 09:[address]: Miroslava Rodrigues DEPT: [facility] Surgical RECD BY: Remedios Grover ENTERED: 01/25/25 11:25 SP TYPE: Surgical OTHR DR: Ana Rosa Jones DO Tissues: A - Breast Biopsy Procedures: P63 Root Keratin Hematoxylin and Eosin Stain Estrogen Receptor Immuno Progestogen Receptor immuno E-Cadherin CD68 Gross and Microscopic Level 4 CD45 CK 20 CK 7 HEYDI-3 HER2 Mib
== END 2025-01-25 07:11 | disposition home or self-care (01) ==
PROVIDERS: PCP Family Medicine; Visit Provider Surgery
DX: R92.8 Other abnormal and inconclusive findings on diagnostic imaging of breast (principal); N63.42 Unspecified lump in left breast, subareolar; N64.53 Retraction of nipple
CPT/HCPCS: 19083; 77065; 88305; 88342; A4648

== ENCOUNTER 2025-02-05 12:15 | Outpatient (CLI) | payer MEDICARE, SELFPAY ==
--- NOTE | ~2025-02-05 | PE_ITS ---
EXAMINATION: PET skull to mid thigh DATE: 02/05/2025 14:21 INDICATION: Secondary malignant neoplasm of bone TECHNIQUE: Blood glucose level was 101 mg/dL. 9.725 mCi of 18-fluorodeoxyglucose (18-FDG) was administered i.v. Low dose computed tomography (CT) images were acquired from the base of the brain to the proximal thighs for attenuation correction and anatomic localization. Positron emission tomography (PET) images were acquired in the same distribution beginning 65 minutes after injection. Images including fused PET/CT images were reconstructed in axial, coronal, and sagittal planes. Automated exposure control technique was employed. The dose- length product was 1139.24mGy-cm. COMPARISON: None FINDINGS: Head/neck: There is symmetric increased activity in the oral cavity, palatine tonsils, parotid glands, submandibular glands, laryngeal muscles and ocular muscles without CT correlate, likely physiologic. Markedly FDG avid 1.2 x 0.6 cm nodules in the deep right parotid lobe with maximal SUV of 59.4. Asymmetric increased uptake in the right thyroid lobe with maximal SUV of 5.3. The left thyroid lobe is atrophic. Slightly posterolateral to the right thyroid lobe at the thoracic inlet there is a 9 x 6 mm FDG avid likely lymph node positioned posterior to the right common carotid and right subclavian arteries with maximal SUV of 6.8. Chest: Small posterior layering left pleural effusion. No suspicious pulmonary nodules. Heart size is normal. Pericardial thickening along the anterior heart is stranding in the overlying epicardial fat. There is associated increased FDG uptake associated with the pericardial thickening in the stranding with maximal SUV of 8.5. There are multiple FDG avid mediastinal lymph nodes. For reference a 1.4 x 1.0 cm subcarinal lymph node demonstrate maximal SUV of 5.9 and a 1.6 x 1.2 cm inferior right paratracheal lymph node demonstrate maximal SUV of 6.3. There is a large region of asymmetric soft tissue density in the subareolar left breast with prominent associated FDG activity with maximal SUV of 21.8 consist ent with recently biopsied primary breast cancer. Abdomen/pelvis/proximal thighs: There appears to be diffuse wall thickening of the stomach with diffuse increased FDG activity with maximal SUV of 15.2. There is stranding and small lymph nodes with increased FDG activity extending posterior to the stomach into the lesser omentum with maximal SUV of 10.9 which is also suspicious for metastatic disease. Physiologic renal accumulation and excretion of FDG activity in the kidneys, bladder and along portions of ureters. There is residual moderate right hydronephrosis and resolution of prior left hydronephrosis post placement of bilateral internal ureteral stents which extend into the partially decompressed bladder. Normal degree and heterogenous pattern of increased uptake throughout the liver without radiologic correlate or dominant FDG avid lesion. Calcified gallstone in the decompressed gallbladder. Spleen, pancreas and bilateral adrenal glands are normal. Mild to moderate uptake scattered throughout the bowels without radiologic correlate, also likely physiologic. Multiple colonic diverticula without adjacent from trace stranding to suggest diverticulitis. Small amount of ascites scattered throughout the abdomen and pelvis. There is stranding with increased FDG activity scattered throughout the omental and mesenteric fat suspicious for peritoneal carcinomatosis. The uterus is not identified and has likely been surgically resected. No other abnormal foci of increased FDG uptake or pathologically enlarged lymphadenopathy in the abdomen, pelvis or proximal thighs. Musculoskeletal: Diffuse increased FDG uptake throughout the bones with scattered patchy sclerosis and small sclerotic bone lesions suspicious for widespread osseous metastatic disease. IMPRESSION: 1. Prominent increased FDG activity such with asymmetric soft tissue density in the subareolar left breast corresponding to biopsy-proven primary breast cancer. 2. FDG avid lesions suspicious for extensive metastatic disease including cervical, mediastinal and upper abdominal lymph nodes, pericardium and epicardial fat, possible and a dysplastic of the stomach as well as invasion of the lesser omentum and more diffuse peritoneal carcinomatosis throughout the a bdomen and pelvis and extensive metastatic bone disease throughout the axial and appendicular skeleton. 3. Small left pleural effusion. 4. Cholelithiasis. 5. Moderate residual right hydronephrosis and resolution of prior left hydronephrosis post placement bilateral intraureteral stents which are in expected position. Reviewed, dictated and finalized at location A. [facility] IMPRESSION: 1. Prominent increased FDG activity such with asymmetric soft tissue density in the subareolar left breast corresponding to biopsy-proven primary breast cance r. 2. FDG avid lesions suspicious for extensive metastatic disease including cervi elian, mediastinal and upper abdominal lymph nodes, pericardium and epicardial fa t, possible and a dysplastic of the stomach as well as invasion of the lesser o mentum and more diffuse peritoneal carcinomatosis throughout the abdomen and pe lvis and extensive metastatic bone disease throughout the axial and appendicula r skeleton. 3. Small left pleural effusion. 4. Cholelithiasis. 5. Moderate residual right hydronephrosis and resolution of prior left hydronep hrosis post placement bilateral intraureteral stents which are in expected posi tion.
--- OUTSIDE RECORDS SUMMARY | 2025-02-05 12:23 | XMS_ITS | Clinical Summary ---
Author Organization [employer] [facility] Address [address] 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
== END 2025-02-05 12:16 | disposition home or self-care (01) ==
PROVIDERS: PCP Family Medicine; Visit Provider Family Medicine
DX: C79.51 Secondary malignant neoplasm of bone (principal); N63.42 Unspecified lump in left breast, subareolar; R92.8 Other abnormal and inconclusive findings on diagnostic imaging of breast
CPT/HCPCS: 78815; A9552